=== PATIENT | female | born 1930 | race Caucasian/White ===

== ENCOUNTER 2017-03-05 18:12 | Inpatient (IN) | payer OTHER ==
[2017-03-05 18:19] VITALS: BMI 23.2
[2017-03-05] MEDS ORDERED: SODIUM CHLORIDE 1,000 ML IV SCH (18:45)
--- NOTE | 2017-03-05 18:46 | PDOC ---
History of Present Illness - History of Present Illness Initial Comments: 03/05/17 20:45 Patient is an 87 year old female with significant medical hx of multiple myeloma (chemotherapy biweekly), HTN, and arrhythmia who is presenting to the ED with rapid heart rate since today. Patient reports having onset of rapid heart rate today while at rest. It was not accompanied by any shortness of breath, chest pain, diaphoresis, nausea, vomiting, or lightheadedness. The patient was started on marinol today and she called her PCP who suspected it was an adverse reaction of the medication. Patient's last chemotherapy was last Thursday. Allergies: Penicillin, lisinopril, oxycodone HCl PCP: Domitila Martin MD <Denise Sears - Last Filed: 03/05/17 21:11> <Jose Cruz Martinez - Last Filed: 03/05/17 22:26> - General Chief Complaint: Irregular Heart Beat Stated Complaint: PCP SENT/BLOOD PRESSURE PROBLEM Time Seen by Provider: 03/05/17 18:42 Past History <Denise Sears - Last Filed: 03/05/17 21:11> - Past Medical History Asthma: No Cancer: Yes (BONE) Cardiac Disorders: Yes (arrythmia) CHF: No Diabetes: No HTN: Yes Hypercholesterolemia: No - Psycho/Social/Smoking Cessation Hx Anxiety: No Suicidal Ideation: No Smoking Status: No Smoking History: Never smoked Have you smoked in the past 12 months: No Number of Cigarettes Smoked Daily: 0 Hx Alcohol Use: No Drug/Substance Use Hx: No Substance Use Type: None <Jose Cruz Martinez - Last Filed: 03/05/17 22:26> - Past Medical History Allergies/Adverse Reactions: Allergies Allergy/AdvReac Type Severity Reaction Status Date / Time lisinopril Allergy Verified 03/05/17 18:15 oxycodone HCl Allergy Verified 03/05/17 18:15 [From OxyContin] Penicillins Allergy Verified 03/05/17 18:15 Home Medications: Ambulatory Orders Losartan Potassium 50 mg PO DAILY 10/26/15 Tramadol HCl 50 mg PO TID 03/05/17 Review of Systems - Review of Systems Comments:: 03/05/17 20:48 GENERAL/CONSTITUTIONAL: No fever or chills. No weakness. HEAD, EYES, EARS, NOSE AND THROAT: No change in vision. No ear pain or discharge. No sore throat. CARDIOVASCULAR: Rapid heart rate. No chest pain or shortness of breath. RESPIRATORY: No cough, wheezing, or hemoptysis. GASTROINTESTINAL: No nausea, vomiting, diarrhea or constipation. GENITOURINARY: No dysuria, frequency, or change in urination. MUSCULOSKELETAL: No joint or muscle swelling or pain. No neck or back pain. ENDOCRINE: No increased thirst. No abnormal weight change. SKIN: No rash NEUROLOGIC: No headache, vertigo, loss of consciousness, or change in strength/ sensation. <Denise Sears - Last Filed: 03/05/17 21:11> *Physical Exam - Vital Signs Last Vital Signs Temp Pulse Resp BP Pulse Ox 98.0 F 84 18 109/72 96 03/05/17 18:13 03/05/17 19:58 03/05/17 19:58 03/05/17 19:58 03/05/17 19:58 - Physical Exam Comments: 03/05/17 20:49 GENERAL: Awake, alert, and fully oriented, in no acute distress HEAD: No signs of trauma EYES: PERRLA, EOMI, sclera anicteric, conjunctiva clear ENT: Auricles normal inspection, hearing grossly normal, nares patent, oropharynx clear without exudates. Moist mucosa NECK: Normal ROM, supple, no lymphadenopathy, JVD, or masses LUNGS: Breath sounds equal, clear to auscultation bilaterally. No wheezes, and no crackles HEART: Irregularly irregular, normal S1 and S2, no murmurs, rubs or gallops ABDOMEN: Soft, nontender, normoactive bowel sounds. No guarding, no rebound. No masses EXTREMITIES: Normal range of motion, no edema. No clubbing or cyanosis. No cords, erythema, or tenderness NEUROLOGICAL: Cranial nerves II through XII grossly intact. Normal speech, normal gait SKIN: Warm, Dry, normal turgor, no rashes or lesions noted. HEMATOLOGIC/LYMPHATIC: No anemia, easy bleeding, or history of blood clots. ALLERGIC/IMMUNOLOGIC: No hives or skin allergy. <Denise Sears - Last Filed: 03/05/17 21:11> - Vital Signs Last Vital Signs Temp Pulse Resp BP Pulse Ox 98.0 F 137 H 18 154/81 97 03/05/17 18:13 03/05/17 18:13 03/05/17 18:13 03/05/17 18:13 03/05/17 18:13 <Jose Cruz Martinez - Last Filed: 03/05/17 22:26> Heart Score/ECG Review #1 03/05/17 21:11 Atrial fibrillation with rapid ventricular response Low voltage QRS Abnormal ECG <Denise Sears - Last Filed: 03/05/17 21:11> ED Treatment Course - LABORATORY CBC & Chemistry Diagram: 03/05/17 18:46 03/05/17 18:46 - ADDITIONAL ORDERS Additional order review: Laboratory Results 03/05/17 03/05/17 18:46 18:46 INR 1.17 H Sodium 139 Potassium 5.1 D Chloride 106 Carbon Dioxide 26 Anion Gap 7 L BUN 21 H D Creatinine 0.9 D Creat Clearance w eGFR 59.51 Random Glucose 135 H D Calcium 8.8 Magnesium 2.3 D Total Bilirubin 0.6 AST 144 H D ALT 180 H D Alkaline Phosphatase 175 H D Creatine Kinase 92 Troponin I 0.02 Total Protein 7.9 Albumin 3.4 03/05/17 18:46 RBC 4.20 MCV 98.8 H MCHC 32.1 RDW 15.9 H D MPV 10.7 D Neutrophils % 50.8 D Lymphocytes % 35.1 D Monocytes % 12.1 H Eosinophils % 1.6 Basophils % 0.4 - Medications Given in the ED: ED Medications Discontinued Medications Generic Name Dose Route Start Last Admin Trade Name Freq PRN Reason Stop Dose Admin Diltiazem HCl 10 mg 03/05/17 19:23 03/05/17 19:28 Cardizem Injection - IVPUSH 03/05/17 19:24 10 mg ONCE ONE Administration <Denise Sears - Last Filed: 03/05/17 21:11> - LABORATORY CBC & Chemistry Diagram: 03/05/17 18:46 03/05/17 18:46 - RADIOLOGY Radiology Studies Ordered: Category Date Time Status CHEST X-RAY PORTABLE* [RAD] Stat Radiology 03/05/17 18:42 Ordered <Jose Cruz Martinez - Last Filed: 03/05/17 22:26> *DC/Admit/Observation/Transfer - Attestations Scribe Attestion: 03/05/17 20:49 Documentation prepared by Denise Sears, acting as medical records analyst for Jose Cruz Martinez MD. <Denise Sears - Last Filed: 03/05/17 21:11> - Discharge Dispostion Admit: Yes - Attestations Physician Attestion: 03/05/17 18:45 I, Dr. Jose Cruz Martinez, attest that this document has been prepared under my direction and personally reviewed by me in its entirety. I further attest, that it accurately reflects all work, treatment, procedures and medical decision -making performed by me. <Jose Cruz Martinez - Last Filed: 03/05/17 22:26> Diagnosis at time of Disposition: New onset atrial fibrillation, Atrial fibrillation with rapid ventricular response - Discharge Dispostion Condition at time of disposition: Improved - Referrals Referrals: Domitila Fish MD [Primary Care Provider] -
[2017-03-05] MEDS ORDERED: dilTIAZem HCL 125 MG/25 ML - 25 ML VIAL ONE (19:09)
[2017-03-05] MEDS ORDERED: dilTIAZem HCL 50 MG/10 ML - 10 ML VIAL ONE (19:11)
[2017-03-05 19:23] LABS: BASOPHIL 0.4 % (0-2.0); EOSINOPHIL 1.6 % (0-4.5); MCH 31.8 pg (25.7-33.7); MCHC 32.1 g/dl (32.0-36.0); MEAN CELL VOLUME 98.8 fl (80-96); MEAN PLT VOLUME 10.7 fl (7.5-11.1); NEUTROPHILS 50.8 % (42.8-82.8); PLATELET COUNT 110 K/MM3 (134-434); RDW 15.9 % (11.6-15.6); WHITE BLOOD COUNT 4.6 K/mm3 (4.0-10.0)
[2017-03-05] MEDS ORDERED: dilTIAZem HCL 50 MG/10 ML - 10 ML VIAL IVPUSH ONE (19:23)
[2017-03-05] MEDS ORDERED: DILTIAZEM INJECTION 125 MG in DEXTROSE 5%-WATER - 100 ML IVPB SCH (19:30)
[2017-03-05 19:46] LABS: INR 1.17 (0.82-1.09); PROTHROMBIN TIME (PATIENT) 12.9 SEC (9.98-11.88)
[2017-03-05 19:56] LABS: ALBUMIN 3.4 g/dl (3.4-5.0); ANION GAP 7 (8-16); BILIRUBIN,TOTAL 0.6 mg/dL (0.2-1.0); CALCIUM 8.8 mg/dL (8.5-10.1); CO2 26 mmol/L (21-32); CREATININE 0.9 mg/dL (0.55-1.02); GLUCOSE,RANDOM 135 mg/dL (74-106); MAGNESIUM 2.3 mg/dL (1.8-2.4); SGOT/AST 144 U/L (15-37); SGPT/ALT 180 U/L (12-78); TOT PROT 7.9 g/dl (6.4-8.2)
[2017-03-05 19:59] LABS: ALK PHOS 175 U/L (45-117); TROPONIN I 0.02 ng/ml (0.00-0.05)
[2017-03-05] MEDS ORDERED: traMADol HCL 50 MG TABLET PO ONE (21:32)
[2017-03-05] MEDS ORDERED: traMADol HCL 50 MG TABLET ONE (21:49)
--- NOTE | 2017-03-05 23:13 | HP ---
HISTORY OF PRESENT ILLNESS: Patient is an 87 year old female with a PMHx of Multiple Myeloma (On chemotherapy [id number]), HTN, and A.fib who presents with complaints of palpitations that started suddenly today at home after taking prescribed marinol for anorexia. Patient's PCP then advised her to come to the ED for evaluation as she believes it is related to the marinol. Patient and patient's daughter report she was recently started on Pradaxa in the [place] but was unable to continue the medication when she returned to the [place] because of how expensive it was. Patient never followed up afterwards. Otherwise, patient denies fever, chills, nausea, vomiting, abdominal pain, shortness of breath, chest pain, dysuria, frequency, hematuria. PHYSICAL EXAMINATION Vital Signs - 24 hr 03/05/17 22:31 Temperature 98.5 F Pulse Rate [ 84 Left Radial] Respiratory 18 Rate Blood Pressure 108/72 [Right Arm] O2 Sat by Pulse 97 Oximetry (%) GENERAL: Awake, alert, and fully oriented, in no acute distress. LUNGS: Breath sounds equal, clear to auscultation bilaterally. No wheezes, and no crackles. No accessory muscle use. HEART: Regular rate and rhythm, normal S1 and S2 without murmur, rub or gallop. ABDOMEN: Soft, nontender, not distended, normoactive bowel sounds, no guarding, no rebound, no masses. LOWER EXTREMITIES: 2+ pulses, warm, well-perfused. No calf tenderness. No peripheral edema. Abnormal Lab Results 03/05/17 03/05/17 03/05/17 18:46 18:46 18:46 MCV 98.8 H RDW 15.9 H D Plt Count 110 L D Monocytes % 12.1 H INR 1.17 H Anion Gap 7 L BUN 21 H D Random Glucose 135 H D AST 144 H D ALT 180 H D Alkaline Phosphatase 175 H D EKG: Atrial fibrillation with rapid ventricular response. Low voltage QRS ASSESSMENT/PLAN: Patient is an 87 year old female with a PMHx of HTN, Multiple Myeloma on chemotheray, and Afib who complains of palpitations after taking Marinol for anorexia due to chemotherapy and was found to be in A.Fib with RVR. Patient admitted for further monitoring and management. A.FIB w/ RVR -Tachycardia >130's -Hasbled: 2 -[id number]: 4 -Likely due to noncompliance with medication -Start anticoagulation with Lovenox 60mg BID and Warfarin 5mg daily -Start Cardizem 60mg TID for rate control -Cardiac consult placed -INR/PTT ordered -ECHO ordered -Lipid profile, A1C, TSH ordered -Continue cardiac monitoring Chest pain -R/O ACS -First troponin negative with second pending -EKG negative for ST elevation Case discussed with medical team and attending. Full H&P to follow. Visit type - Emergency Visit Emergency Visit: Yes ED Registration Date: 03/05/17 Care time: The patient presented to the Emergency Department on the above date and was hospitalized for further evaluation of their emergent condition. - New Patient This patient is new to me today: Yes Date on this admission: 03/06/17 - Critical Care Critical Care patient: No
--- NOTE | 2017-03-05 23:45 | HP ---
CHIEF COMPLAINT: Palpitation ,Mid sternal chest pain. PCP: Domitila Martin MD HISTORY OF PRESENT ILLNESS: Patient is an 87 year old female with a significant past medical hx of Multiple Myeloma (chemotherapy biweekly), HTN, and A.Fib who presented to the ED complaining of palpitations and chest tightness that started today around 16:00 today associated with non-radiating, mid-sternal chest pain described as tight in nature with a severity of 6/10. Patient and patients daughter report that since starting chemotherapy she has experienced decreased appetite and pain for which she was prescribed marinol by her primary care physician. When she took her first dose of marinol today, patient immediately experienced palpitations and called her primacy care physician who advised her to go to the ED as she believes it was a side effect of the marinol. Otherwise, patient denies any shortness of breath, diaphoresis, nausea, vomiting, or lightheadedness Patient denies any urinary symptoms. Allergies: Penicillin, lisinopril, oxycodone HCl ER course was notable for: (1)EKG :Atrial fibrillation with rapid ventricular response. (2)CXR: No acute pathology (3)Diltiazem 10 mg IVPUSH once Recent Travel:NO PAST MEDICAL HISTORY: PAST SURGICAL HISTORY:none Social History: Smoking:none Alcohol:None Drugs: None Family History: Allergies: lisinopril Allergy (Verified 03/05/17 18:15) oxycodone HCl [From OxyContin] Allergy (Verified 03/05/17 18:15) Penicillins Allergy (Verified 03/05/17 18:15) HOME MEDICATIONS: Home Medications Medication Instructions Recorded Losartan Potassium 50 mg PO DAILY 10/26/15 Tramadol HCl 50 mg PO TID 03/05/17 REVIEW OF SYSTEMS CONSTITUTIONAL: Absent: fever, chills, diaphoresis, generalized weakness, malaise, loss of appetite, weight change HEENT: Absent: rhinorrhea, nasal congestion, throat pain, throat swelling, difficulty swallowing, mouth swelling, ear pain, eye pain, visual changes CARDIOVASCULAR: Absent:+ chest pain, syncope, +palpitations,+ irregular heart rate, lightheadedness,+ peripheral edema RESPIRATORY: Absent: cough, shortness of breath, dyspnea with exertion, orthopnea, wheezing, stridor, hemoptysis GASTROINTESTINAL: Absent: abdominal pain, abdominal distension, nausea, vomiting, diarrhea, constipation, melena, hematochezia GENITOURINARY: Absent: dysuria, frequency, urgency, hesitancy, hematuria, flank pain, genital pain MUSCULOSKELETAL: Absent: myalgia, arthralgia, joint swelling, back pain, neck pain SKIN: Absent: rash, itching, pallor HEMATOLOGIC/IMMUNOLOGIC: Absent: easy bleeding, easy bruising, lymphadenopathy, frequent infections ENDOCRINE: Absent: unexplained weight gain, unexplained weight loss, heat intolerance, cold intolerance NEUROLOGIC: Absent: headache, focal weakness or paresthesias, dizziness, unsteady gait, seizure, mental status changes, bladder or bowel incontinence PSYCHIATRIC: Absent: anxiety, depression, suicidal or homicidal ideation, hallucinations. CBC, BMP PHYSICAL EXAMINATION Vital Signs - 24 hr 03/05/17 22:31 Temperature 98.5 F Pulse Rate [ 84 Left Radial] Respiratory 18 Rate Blood Pressure 108/72 [Right Arm] O2 Sat by Pulse 97 Oximetry (%) GENERAL: Awake, alert, and fully oriented, in no acute distress. HEAD: Normal with no signs of trauma. EYES: Pupils equal, round and reactive to light, extraocular movements intact, sclera anicteric, conjunctiva clear. No lid lag. EARS, NOSE, THROAT: oropharynx clear without exudates. Moist mucous membranes. NECK: Normal range of motion, supple without lymphadenopathy, JVD, or masses. LUNGS: Breath sounds equal, clear to auscultation bilaterally. No wheezes, and no crackles. No accessory muscle use. HEART: Irregularly irregular rhythm, normal S1 and S2 without murmur, rub or gallop. ABDOMEN: Soft, nontender, not distended, normoactive bowel sounds, no guarding, no rebound, no masses. No hepatomegaly or splenomegaly. MUSCULOSKELETAL: No CVA tenderness. UPPER EXTREMITIES: 2+ pulses, warm, well-perfused. No cyanosis. No clubbing. No peripheral edema. LOWER EXTREMITIES: 2+ pulses, warm, well-perfused. No calf tenderness. No peripheral edema. NEUROLOGICAL: Normal speech. Normal gait. PSYCHIATRIC: Cooperative. Good eye contact. Appropriate mood and affect. SKIN: Warm, dry, normal turgor, no rashes or lesions noted, normal capillary refill. CBC, BMP 03/05/17 18:46 03/05/17 18:46 CBCD WBC 4.6 K/mm3 (4.0-10.0) 03/05/17 18:46 RBC 4.20 M/mm3 (3.60-5.2) 03/05/17 18:46 Hgb 13.3 GM/dL (10.7-15.3) 03/05/17 18:46 Hct 41.5 % (32.4-45.2) 03/05/17 18:46 MCV 98.8 fl (80-96) H 03/05/17 18:46 MCHC 32.1 g/dl (32.0-36.0) 03/05/17 18:46 RDW 15.9 % (11.6-15.6) H D 03/05/17 18:46 Plt Count 110 K/MM3 (134-434) L D 03/05/17 18:46 MPV 10.7 fl (7.5-11.1) D 03/05/17 18:46 CMP Sodium 139 mmol/L (136-145) 03/05/17 18:46 Potassium 5.1 mmol/L (3.5-5.1) D 03/05/17 18:46 Chloride 106 mmol/L (98-107) 03/05/17 18:46 Carbon Dioxide 26 mmol/L (21-32) 03/05/17 18:46 Anion Gap 7 (8-16) L 03/05/17 18:46 BUN 21 mg/dL (7-18) H D 03/05/17 18:46 Creatinine 0.9 mg/dL (0.55-1.02) D 03/05/17 18:46 Creat Clearance w eGFR 59.51 (>60) 03/05/17 18:46 Calcium 8.8 mg/dL (8.5-10.1) 03/05/17 18:46 Total Bilirubin 0.6 mg/dL (0.2-1.0) 03/05/17 18:46 AST 144 U/L (15-37) H D 03/05/17 18:46 ALT 180 U/L (12-78) H D 03/05/17 18:46 Alkaline Phosphatase 175 U/L (45-117) H D 03/05/17 18:46 Total Protein 7.9 g/dl (6.4-8.2) 03/05/17 18:46 Albumin 3.4 g/dl (3.4-5.0) 03/05/17 18:46 EKG:Atrial fibrillation with rapid ventricular response. ASSESSMENT/PLAN: Patient is an 87 year old female with significant medical hx of multiple myeloma (chemotherapy biweekly), HTN, and arrhythmia who is presenting to the ED with episode of rapid heart rate ,patient was admitted for cardiac tele for new onset of AFIB ( HR 126) with rapid ventricular response, and for acute chest pain to R/O ACS. #Chest pain, Acute R/O ACS * Trop * CXR no acute pathology * telemetry monitor * Cardiac consultation * Repeat EKG * ECHO # AFIb, * CHA2 DS2 Vasc score of 4 * HAS BLED score 2 * Repeat EKG in the morning * trend trop * TSH to R/O hyperthyroidism * CXR shows no acute pathology * Echocardiogram * cardiac observation * PTT/INR * Lipid profile * Lovenox 60 mg SQ BID * start Diltiazem 60 mg PO TID. * cardiac consult # HTN , controlled * Continue Home meds Losartan 50 MG PO BID * BP monitor * low sodium diet * # MM * on chemo therapy last session was last thu * F/U as out patient after DC # Transaminitis : * AST 144 ,ALT 180 * continue trend * US liver * no RUQ pain # F/E/N * NS 0.9 @ 75 CC /H * Electrolytes WNL * N: low sodium diet # Prophylaxis : - DVT proph - # Dispo : -Admit to cardiac tele -Full code
[2017-03-06] MEDS ORDERED: WARFARIN NA 5 MG TABLET (UD) PO ONE (00:01)
[2017-03-06] MEDS: ENOXAPARIN NA (PORCINE) 60 MG/0.6 ML DISP.SYRIN SQ SCH ×2 (00:01→10:46)
[2017-03-06] MEDS ORDERED: SODIUM CHLORIDE 1,000 ML IV SCH ×2 (04:19→04:30)
[2017-03-06] MEDS: dilTIAZem HCL 60 MG TABLET (FP) PO SCH ×3 (05:59→21:25)
[2017-03-06] MEDS: INSULIN SLIDING SCALE (NOVOLOG) 1 VIAL SQ SCH ×2 (06:05→17:31)
--- NOTE | 2017-03-06 06:30 | PN ---
Teaching Attending Note Name of Resident: Akash Contreras ATTENDING PHYSICIAN STATEMENT I saw and evaluated the patient. I reviewed the resident's note and discussed the case with the resident. I agree with the resident's findings and plan as documented. SUBJECTIVE: 87 y/o female with h/o HTN, MM receiving chemotherapy and recently diagnosed with Afib 2 months ago, non compliant with anticoagulation therapy due to the cost, presented to ED with c/o chest pressure. OBJECTIVE: PAtient is A&O x3 in no acute distress, CVS: Irreg rate and rhythm, no JVD Lungs: CTA Abdomen: soft, NT, ND, BS+ Ext: 2+ pulses, Nl ROM CBCD WBC 4.6 K/mm3 (4.0-10.0) 03/05/17 18:46 RBC 4.20 M/mm3 (3.60-5.2) 03/05/17 18:46 Hgb 13.3 GM/dL (10.7-15.3) 03/05/17 18:46 Hct 41.5 % (32.4-45.2) 03/05/17 18:46 MCV 98.8 fl (80-96) H 03/05/17 18:46 MCHC 32.1 g/dl (32.0-36.0) 03/05/17 18:46 RDW 15.9 % (11.6-15.6) H D 03/05/17 18:46 Plt Count 110 K/MM3 (134-434) L D 03/05/17 18:46 MPV 10.7 fl (7.5-11.1) D 03/05/17 18:46 CMP Sodium 139 mmol/L (136-145) 03/05/17 18:46 Potassium 5.1 mmol/L (3.5-5.1) D 03/05/17 18:46 Chloride 106 mmol/L (98-107) 03/05/17 18:46 Carbon Dioxide 26 mmol/L (21-32) 03/05/17 18:46 Anion Gap 7 (8-16) L 03/05/17 18:46 BUN 21 mg/dL (7-18) H D 03/05/17 18:46 Creatinine 0.9 mg/dL (0.55-1.02) D 03/05/17 18:46 Creat Clearance w eGFR 59.51 (>60) 03/05/17 18:46 Random Glucose 135 mg/dL (74-106) H D 03/05/17 18:46 Calcium 8.8 mg/dL (8.5-10.1) 03/05/17 18:46 Total Bilirubin 0.6 mg/dL (0.2-1.0) 03/05/17 18:46 AST 144 U/L (15-37) H D 03/05/17 18:46 ALT 180 U/L (12-78) H D 03/05/17 18:46 Alkaline Phosphatase 175 U/L (45-117) H D 03/05/17 18:46 Total Protein 7.9 g/dl (6.4-8.2) 03/05/17 18:46 Albumin 3.4 g/dl (3.4-5.0) 03/05/17 18:46 CARDIAC ENZYMES Creatine Kinase 92 IU/L (26-192) 03/05/17 18:46 Troponin I 0.03 ng/ml (0.00-0.05) 03/06/17 02:45 ASSESSMENT AND PLAN: Afib with uncontrolled rate on cardizeme drip, start po cardizeme. Admit for telemetry observation Lovenox 1mg/kg q12h Coumadin 5mg QHS follow coag daily ECHO Elevated LFTS possibly secondary to Chemo medications Bortezomib get US
[2017-03-06 07:35] LABS: INR 1.22 (0.82-1.09); PROTHROMBIN TIME (PATIENT) 13.5 SEC (9.98-11.88)
[2017-03-06 07:43] LABS: ALBUMIN 3.3 g/dl (3.4-5.0); ALK PHOS 143 U/L (45-117); ANION GAP 6 (8-16); BILIRUBIN,TOTAL 0.8 mg/dL (0.2-1.0); CALCIUM 8.2 mg/dL (8.5-10.1); CHOLESTEROL 122 mg/dL (50-200); CO2 27 mmol/L (21-32); CREATININE 0.8 mg/dL (0.55-1.02); GLUCOSE,RANDOM 101 mg/dL (74-106); LDL CHOLESTEROL (ONLY SJRH) 68 mg/dL (5-100); SGOT/AST 118 U/L (15-37); SGPT/ALT 170 U/L (12-78); TOT PROT 7.3 g/dl (6.4-8.2)
--- NOTE | 2017-03-06 09:14 | EKG ---
Test Reason : Blood Pressure : / mmHG Vent. Rate : 080 BPM Atrial Rate : 416 BPM P-R Int : 000 ms QRS Dur : 088 ms QT Int : 384 ms P-R-T Axes : 000 -10 019 degrees QTc Int : 442 ms ATRIAL FIBRILLATION LOW VOLTAGE QRS ABNORMAL ECG WHEN COMPARED WITH ECG OF 05-MAR-2017 18:32, VENT. RATE HAS DECREASED BY 46 BPM Confirmed by LUISANA ALMARAZ MD ([id number]) on 03/06/2017 9:14:19 AM Referred By: Confirmed By:LUISANA ALMARAZ MD
--- NOTE | 2017-03-06 09:21 | EKG ---
Test Reason : Blood Pressure : / mmHG Vent. Rate : 126 BPM Atrial Rate : 098 BPM P-R Int : 000 ms QRS Dur : 086 ms QT Int : 306 ms P-R-T Axes : 000 -15 041 degrees QTc Int : 443 ms ATRIAL FIBRILLATION WITH RAPID VENTRICULAR RESPONSE LOW VOLTAGE QRS ABNORMAL ECG WHEN COMPARED WITH ECG OF 26-OCT-2015 10:54, ATRIAL FIBRILLATION HAS REPLACED SINUS RHYTHM Confirmed by LUISANA ALMARAZ MD ([id number]) on 03/06/2017 9:21:25 AM Referred By: Confirmed By:LUISANA ALMARAZ MD
[2017-03-06] MEDS ORDERED: LOSARTAN POTASSIUM 50 MG TABLET (FP) PO SCH ×2 (10:00→10:04)
[2017-03-06 11:09] LABS: URINE APPEARANCE CLEAR; URINE BILIRUBIN NEGATIVE (NEGATIVE); URINE BLOOD NEGATIVE (NEGATIVE); URINE COLOR LTYELLOW; URINE GLUCOSE (UA) NEGATIVE (NEGATIVE); URINE KETONE NEGATIVE (NEGATIVE); URINE LEUK ESTERASE NEGATIVE (NEGATIVE); URINE NITRITE NEGATIVE (NEGATIVE); URINE PROTEIN NEGATIVE (NEGATIVE); URINE UROBILINOGEN NEGATIVE mg/dL (0.2-1.0)
--- NOTE | 2017-03-06 11:26 | CON.CARD ---
Cardiology Consult (text) - Consultation Consultation Note: cc: palps hpi: 87 f hx multiple myeloma on chemo, htn, afib here with palps. Pt had been feeling well until yesterday when felt her heart beating fast. No cp, sob , dizzy, loc, pnd, orthopnea, le edema. Came to ER and found afib with rvr. Rate controlled and today feeling better. Poor compliance with meds as outpt. pmh: per hpi psh: nc social: no tob fam: no premature cad, scd ros: per hpi; no nvd, fever, cough, nasal congestion, hematuria, gib, muscle pain, [place], vision changes meds: Ambulatory Orders Losartan Potassium 50 mg PO DAILY 10/26/15 Tramadol HCl 50 mg PO TID 03/05/17 pe: Vital Signs Period Temp Pulse Resp BP Sys/Duarte Pulse Ox Last 24 Hr 97.5 F-98.5 F 68-137 16-20 108-154/62-85 96-97 nad no jvd irreg s1s2 no mrg cta bl nl eff awake alert appropriate no jaundice diaphoresis +dp pt, no carotid bruits abd nt nd pos bs no le e/c/c Laboratory Last Values WBC 4.6 K/mm3 (4.0-10.0) 03/05/17 18:46 RBC 4.20 M/mm3 (3.60-5.2) 03/05/17 18:46 Hgb 13.3 GM/dL (10.7-15.3) 03/05/17 18:46 Hct 41.5 % (32.4-45.2) 03/05/17 18:46 MCV 98.8 fl (80-96) H 03/05/17 18:46 MCH 31.8 pg (25.7-33.7) 03/05/17 18:46 MCHC 32.1 g/dl (32.0-36.0) 03/05/17 18:46 RDW 15.9 % (11.6-15.6) H D 03/05/17 18:46 Plt Count 110 K/MM3 (134-434) L D 03/05/17 18:46 MPV 10.7 fl (7.5-11.1) D 03/05/17 18:46 Neutrophils % 50.8 % (42.8-82.8) D 03/05/17 18:46 Lymphocytes % 35.1 % (8-40) D 03/05/17 18:46 Monocytes % 12.1 % (3.8-10.2) H 03/05/17 18:46 Eosinophils % 1.6 % (0-4.5) 03/05/17 18:46 Basophils % 0.4 % (0-2.0) 03/05/17 18:46 INR 1.22 (0.82-1.09) H 03/06/17 05:35 Sodium 139 mmol/L (136-145) 03/06/17 05:35 Potassium 3.7 mmol/L (3.5-5.1) D 03/06/17 05:35 Chloride 106 mmol/L (98-107) 03/06/17 05:35 Carbon Dioxide 27 mmol/L (21-32) 03/06/17 05:35 Anion Gap 6 (8-16) L 03/06/17 05:35 BUN 15 mg/dL (7-18) D 03/06/17 05:35 Creatinine 0.8 mg/dL (0.55-1.02) 03/06/17 05:35 Creat Clearance w eGFR > 60 (>60) 03/06/17 05:35 POC Glucometer 112 UNITS (()) 03/06/17 06:03 Random Glucose 101 mg/dL (74-106) D 03/06/17 05:35 Hemoglobin A1c % 6.7 % (4.8-6.0) H 03/06/17 05:35 Calcium 8.2 mg/dL (8.5-10.1) L 03/06/17 05:35 Magnesium 2.3 mg/dL (1.8-2.4) D 03/05/17 18:46 Total Bilirubin 0.8 mg/dL (0.2-1.0) D 03/06/17 05:35 AST 118 U/L (15-37) H 03/06/17 05:35 ALT 170 U/L (12-78) H 03/06/17 05:35 Alkaline Phosphatase 143 U/L (45-117) H 03/06/17 05:35 Creatine Kinase 92 IU/L (26-192) 03/05/17 18:46 Troponin I 0.03 ng/ml (0.00-0.05) 03/06/17 10:00 Total Protein 7.3 g/dl (6.4-8.2) 03/06/17 05:35 Albumin 3.3 g/dl (3.4-5.0) L 03/06/17 05:35 Triglycerides 47 mg/dL (35-160) 03/06/17 05:35 Cholesterol 122 mg/dL (50-200) 03/06/17 05:35 Total LDL Cholesterol 68 mg/dL (5-100) 03/06/17 05:35 HDL Cholesterol 51 mg/dL (40-60) 03/06/17 05:35 Urine Color Ltyellow 03/06/17 10:35 Urine Appearance Clear 03/06/17 10:35 Urine pH 5.0 (5.0-8.0) D 03/06/17 10:35 Urine Protein Negative (NEGATIVE) 03/06/17 10:35 Urine Glucose (UA) Negative (NEGATIVE) 03/06/17 10:35 Urine Ketones Negative (NEGATIVE) 03/06/17 10:35 Urine Blood Negative (NEGATIVE) 03/06/17 10:35 Urine Nitrite Negative (NEGATIVE) 03/06/17 10:35 Urine Bilirubin Negative (NEGATIVE) 03/06/17 10:35 Urine Urobilinogen Negative mg/dL (0.2-1.0) 03/06/17 10:35 Ur Leukocyte Esterase Negative (NEGATIVE) 03/06/17 10:35 echo 12/2014: nl lv/rv, mild mr, mild ar, mild pr, mild-mod tr, rvsp 50-60 tele: afib, rate controlled currently cxr: clear lungs ecg 03/05/17: afib, rate controlled, no ischemic changes, nl qtc a/p: 87 f hx multiple myeloma on chemo, htn, afib here with palps. palps, afib: -no signs acs, ce's neg x2, no ischemic ecg changes -presented with afib with rvr, likely due to poor med compliance -currently rate improved with dilt, continue and monitor on tele -cont coumadin per INR -check updated echo htn: -controlled, cont current meds mild valvular dz (mr,ar,pr,tr): -appears stable, monitor with updated echo
--- NOTE | 2017-03-06 13:50 | PN ---
Physical Exam: SUBJECTIVE: Patient seen and examined at bedside. Pt complains of mild chest and throat pressure. No other complaints at this time. Pt denies headache, sob, abd pain, nausea, vomiting, diarrhea, dysuria, fever. OBJECTIVE: Vital Signs Period Temp Pulse Resp BP Sys/Duarte Pulse Ox Last 24 Hr 97.5 F-98.5 F 68-104 18-20 108-139/62-85 97-97 GENERAL: The patient is awake, alert, and fully oriented, in no acute distress. HEAD: Normal with no signs of trauma. EYES: PERRL, extraocular movements intact, sclera anicteric, conjunctiva clear. No ptosis. ENT: oropharynx clear without exudates, moist mucous membranes. NECK: Trachea midline, full range of motion, supple. LUNGS: Breath sounds equal, clear to auscultation bilaterally, no wheezes, no crackles, no accessory muscle use. HEART: Regular rate and rhythm, normal S1, S2 without murmur, rub or gallop. ABDOMEN: Soft, nontender, nondistended, normoactive bowel sounds, no guarding, no rebound, no hepatosplenomegaly, no masses. EXTREMITIES: 2+ pulses, warm, well-perfused, no edema. NEUROLOGICAL: Cranial nerves II through XII grossly intact. Normal speech, gait not observed. PSYCH: Normal mood, normal affect. SKIN: Warm, dry, normal turgor, no rashes or lesions noted Laboratory Results - last 24 hr 03/06/17 03/06/17 03/06/17 02:45 05:35 05:35 INR 1.22 H Sodium 139 Potassium 3.7 D Chloride 106 Carbon Dioxide 27 Anion Gap 6 L BUN 15 D Creatinine 0.8 Creat Clearance w eGFR > 60 POC Glucometer Random Glucose 101 D Hemoglobin A1c % Calcium 8.2 L Total Bilirubin 0.8 D AST 118 H ALT 170 H Alkaline Phosphatase 143 H Troponin I 0.03 Total Protein 7.3 Albumin 3.3 L Triglycerides 47 Cholesterol 122 Total LDL Cholesterol 68 HDL Cholesterol 51 Urine Color Urine Appearance Urine pH Urine Protein Urine Glucose (UA) Urine Ketones Urine Blood Urine Nitrite Urine Bilirubin Urine Urobilinogen Ur Leukocyte Esterase 03/06/17 03/06/17 03/06/17 05:35 06:03 10:00 INR Sodium Potassium Chloride Carbon Dioxide Anion Gap BUN Creatinine Creat Clearance w eGFR POC Glucometer 112 Random Glucose Hemoglobin A1c % 6.7 H Calcium Total Bilirubin AST ALT Alkaline Phosphatase Troponin I 0.03 Total Protein Albumin Triglycerides Cholesterol Total LDL Cholesterol HDL Cholesterol Urine Color Urine Appearance Urine pH Urine Protein Urine Glucose (UA) Urine Ketones Urine Blood Urine Nitrite Urine Bilirubin Urine Urobilinogen Ur Leukocyte Esterase 03/06/17 03/06/17 10:35 11:40 INR Sodium Potassium Chloride Carbon Dioxide Anion Gap BUN Creatinine Creat Clearance w eGFR POC Glucometer 104 Random Glucose Hemoglobin A1c % Calcium Total Bilirubin AST ALT Alkaline Phosphatase Troponin I Total Protein Albumin Triglycerides Cholesterol Total LDL Cholesterol HDL Cholesterol Urine Color Ltyellow Urine Appearance Clear Urine pH 5.0 D Urine Protein Negative Urine Glucose (UA) Negative Urine Ketones Negative Urine Blood Negative Urine Nitrite Negative Urine Bilirubin Negative Urine Urobilinogen Negative Ur Leukocyte Esterase Negative Active Medications Generic Name Dose Route Start Last Admin Trade Name Freq PRN Reason Stop Dose Admin Diltiazem HCl 60 mg 03/06/17 06:00 03/06/17 05:59 Cardizem - PO 03/06/17 23:00 60 mg TID ANANT Administration Diltiazem HCl 180 mg 03/07/17 10:00 Cardizem Cd - PO DAILY [facility] Enoxaparin Sodium 60 mg 03/05/17 23:30 03/06/17 10:46 Lovenox - SQ 60 mg BID [facility] Administration Insulin Aspart 1 vial 03/06/17 07:00 03/06/17 06:05 Novolog Vial Sliding Scale - SQ Not Given BIDAC [facility] Protocol Losartan Potassium 25 mg 03/06/17 10:04 03/06/17 10:46 Cozaar - PO 25 mg DAILY [facility] Administration Tramadol HCl 50 mg 03/05/17 23:27 Ultram - PO TID PRN PAIN LEVEL 6-10 Warfarin Sodium 5 mg 03/06/17 18:00 Coumadin - PO DAILY@1800 [facility] ASSESSMENT/PLAN: This is an 87 year old female with significant medical hx of multiple myeloma ( chemotherapy biweekly), HTN, and artial fibrillation who is presenting to the ED with episode of rapid heart rate, patient was admitted for cardiac tele for new onset of AFIB ( HR 126) with rapid ventricular response, and for acute chest pain to R/O ACS. #r/o ACS -Pain is midsternal, pressure-like, reproducible, unrelated to activity, and pt states it resolves completely with the application of "vapor rub" every time -Tn neg x3 -CXR no acute pathology -Echo: severe mitral and tricuspid regurg -repeat EKG neg for ST elevations # AFIb, -CHA2 DS2 Vasc score of 4 -HAS BLED score 2 -Repeat EKG in the morning -trend trop -TSH to R/O hyperthyroidism -CXR shows no acute pathology -Echocardiogram -cardiac observation -PTT/INR -Lipid profile -Lovenox 60 mg SQ BID -start Diltiazem 60 mg PO TID. -cardiac consult # HTN , controlled -Continue Home meds Losartan 50 MG PO BID -BP monitor -low sodium diet # Transaminitis : -?? 2/2 to hypoperfusion during bout of RVR -AST 144 ,ALT 180 -continue trend -US liver -no RUQ pain # MM -on chemo therapy last session was last thu - F/U as out patient after DC #UA neg # FEN -NS 0.9 @ 75 CC /H -Electrolytes WNL -low sodium diet # Prophylaxis - DVT proph # Dispo : -Admit to cardiac tele -Full code Visit type - Emergency Visit Emergency Visit: No - New Patient This patient is new to me today: No - Critical Care Critical Care patient: No
--- NOTE | 2017-03-06 16:04 | PN ---
Teaching Attending Note Name of Resident: Balbir Estrada ATTENDING PHYSICIAN STATEMENT I saw and evaluated the patient. I reviewed the resident's note and discussed the case with the resident. I agree with the resident's findings and plan as documented. SUBJECTIVE: no fever or chills, no CP or SOB, no PAlpitations feels much better OBJECTIVE: NAD , Awake , alert. CV: irreg irreg , JVD . no MRG Lungs : bibasilar crackles Abd :S fot, NT, ND , NL BS Ext : no edema , or erythema A/P : 87 y/o lady with h/o HTN, A fib , and MM who presented with palpitations and CP , who was found to have A fib with RVR 1- A fib with RVR. on only baby aspirin at home. not on any AV sharon bobby at home. now HR has responded to CCB. She looks in a mild R and left sided CHF but but there is no respiratory compromise She has no signs of infection . - cont cardizem 60 TID , and if BP tolerates , will change to cardizem CD in am - decrease dose of losartan to 25 to give room for rate control - [id number] score of 4---> 4.8 % yearly risk of stroke. was on Pradaxa in past but insurance coverage has stopped, so now on ASA as otu pt - was started on coumadin and lovenox here. Will d/w her insurance if eliquis or xarelto are covered. if so will change to NOACS - although , she has signs of heart mild heart failure , will hold diuresis now , and stop IVF started last night - TSH pending 2- Transaminitis : likely due to liver congestion from R sided heart failure. also , possible transient hypotension when in RVR . Meds effect in DDX ( chemotherapy). unlikely cholecystitis or biliary stones. no RUAQ pain . LFTS have improved - RUQ US - trend 3- h/o HTN: decrease losartan as above 4- atypical CP : likely due to tachycardia . trop slightly increased within NL limit. repeat.tele monitoring 5-MM, out pt f/u
[2017-03-06] MEDS ORDERED: RIVAROXABAN 20 MG TABLET PO SCH (17:00)
[2017-03-06] MEDS ORDERED: WARFARIN NA 5 MG TABLET (UD) PO SCH (18:00)
[2017-03-06] MEDS: traMADol HCL 50 MG TABLET PO PRN (21:44)
[2017-03-07] MEDS: INSULIN SLIDING SCALE (NOVOLOG) 1 VIAL SQ SCH ×2 (06:05→17:56)
[2017-03-07 07:06] LABS: INR 1.22 (0.82-1.09); PROTHROMBIN TIME (PATIENT) 13.5 SEC (9.98-11.88)
[2017-03-07 07:26] LABS: ANION GAP 6 (8-16); BILIRUBIN,TOTAL 0.8 mg/dL (0.2-1.0); CALCIUM 8.5 mg/dL (8.5-10.1); CO2 27 mmol/L (21-32); CREATININE 0.9 mg/dL (0.55-1.02); GLUCOSE,RANDOM 93 mg/dL (74-106); SGOT/AST 102 U/L (15-37); SGPT/ALT 150 U/L (12-78); TOT PROT 6.8 g/dl (6.4-8.2)
[2017-03-07 07:35] LABS: ALK PHOS 139 U/L (45-117); THYROID STIMULATING HORMONE 2.79 uIU/ml (0.358-3.74)
--- NOTE | 2017-03-07 09:05 | PN ---
Progress Note (short form) - Note Progress Note: Subjective: no feve ror chills, has no CP or SOB. has no abd pain . no diarrhea or dysuria . denies palpitations . no events over night Objective: Vital Signs: Last Vital Signs Temp Pulse Resp BP Pulse Ox 97.2 F L 82 20 121/57 97 03/07/17 05:00 03/07/17 05:00 03/07/17 05:00 03/07/17 05:00 03/06/17 22:00 Laboratory Results - last 24 hr 03/06/17 03/06/17 03/06/17 05:35 10:00 10:35 INR Sodium Potassium Chloride Carbon Dioxide Anion Gap BUN Creatinine Creat Clearance w eGFR POC Glucometer Random Glucose Hemoglobin A1c % 6.7 H Calcium Total Bilirubin AST ALT Alkaline Phosphatase Troponin I 0.03 Total Protein Albumin TSH Urine Color Ltyellow Urine Appearance Clear Urine pH 5.0 D Ur Specific [place] 1.010 Urine Protein Negative Urine Glucose (UA) Negative Urine Ketones Negative Urine Blood Negative Urine Nitrite Negative Urine Bilirubin Negative Urine Urobilinogen Negative Ur Leukocyte Esterase Negative 03/06/17 03/06/17 03/07/17 11:40 15:47 05:35 INR Sodium 142 Potassium 4.2 Chloride 109 H Carbon Dioxide 27 Anion Gap 6 L BUN 16 Creatinine 0.9 Creat Clearance w eGFR 59.51 POC Glucometer 104 154 Random Glucose 93 Hemoglobin A1c % Calcium 8.5 Total Bilirubin 0.8 AST 102 H ALT 150 H Alkaline Phosphatase 139 H Troponin I Total Protein 6.8 Albumin 3.0 L TSH 2.79 Urine Color Urine Appearance Urine pH Ur Specific [place] Urine Protein Urine Glucose (UA) Urine Ketones Urine Blood Urine Nitrite Urine Bilirubin Urine Urobilinogen Ur Leukocyte Esterase 03/07/17 03/07/17 05:35 06:04 INR 1.22 H Sodium Potassium Chloride Carbon Dioxide Anion Gap BUN Creatinine Creat Clearance w eGFR POC Glucometer 110 Random Glucose Hemoglobin A1c % Calcium Total Bilirubin AST ALT Alkaline Phosphatase Troponin I Total Protein Albumin TSH Urine Color Urine Appearance Urine pH Ur Specific [place] Urine Protein Urine Glucose (UA) Urine Ketones Urine Blood Urine Nitrite Urine Bilirubin Urine Urobilinogen Ur Leukocyte Esterase Physical Exam: NAD , Awake , alert. CV: irreg irreg , JVD . no MRG Lungs : clear today Ext : no edema , or erythema Gait: steady with cane . A/P : 87 y/o lady with h/o HTN, A fib , and MM who presented with palpitations and CP , who was found to have A fib with RVR 1- A fib with RVR. on only baby aspirin at home. not on any AV sharon bobby at home. HR improved but still with walking HR increases to 160 . - increase cardizem to 240 today . - hold losartan to give more room for rate control - [id number] score of 4---> 4.8 % yearly risk of stroke. - with help of commercial lending vice president [id number], d/w her and her daughter the risk of stoke without AC , and risk of bleed with full dose AC. she agreed to be on AC. her options were discussed with her , and will place her on xarelto. Risk of spinal bleed was also discussed . pharmacy was called and xarelto is covered by her insurance . - will not resume asa at dc , has no stents or CAD - Echo with worsening TR and MR compared to previous echo . f/u as out p t 2- Transaminitis : likely due to liver congestion from severe TR. also , possible transient hypotension when in RVR . Meds effect in DDX ( chemotherapy) . unlikely cholecystitis or biliary stones. no RUAQ pain . LFTS have improved - RUQ US unremarkable ( no CBD dialation or cholecystitis ). - cont to trend trend 3- h/o HTN: hold losartan as above 4- Atypical CP : likely due to tachycardia. resolved . ischemic w/u neg 5-MM, out pt f/u HLOC , need more rate control Visit type - Emergency Visit Emergency Visit: Yes ED Registration Date: 03/05/17 Care time: The patient presented to the Emergency Department on the above date and was hospitalized for further evaluation of their emergent condition. - New Patient This patient is new to me today: No - Critical Care Critical Care patient: No
[2017-03-07] MEDS: ENOXAPARIN NA (PORCINE) 60 MG/0.6 ML DISP.SYRIN SQ SCH (09:27)
[2017-03-07] MEDS ORDERED: RIVAROXABAN 20 MG TABLET PO SCH (10:00)
--- NOTE | 2017-03-07 11:03 | PN ---
Progress Note (short form) - Note Progress Note: s: no cp sob palps dizzy o: Vital Signs Period Temp Pulse Resp BP Sys/Duarte Pulse Ox Last 24 Hr 97.2 F-98.0 F 77-94 18-20 95-124/44-82 97-97 nad no jvd irreg s1s2 no mrg cta bl nl eff awake alert appropriate no jaundice diaphoresis abd nt nd pos bs no le e/c/c Current Medications Generic Name Dose Route Start Last Admin Trade Name Freq PRN Reason Stop Dose Admin Diltiazem HCl 240 mg 03/07/17 10:00 03/07/17 09:26 Cardizem Cd - PO 240 mg DAILY ANANT Administration Enoxaparin Sodium 60 mg 03/07/17 09:00 03/07/17 09:27 Lovenox - SQ 60 mg ONCE ANANT Administration Insulin Aspart 1 vial 03/06/17 07:00 03/07/17 06:05 Novolog Vial Sliding Scale - SQ Not Given BIDAC [facility]NANT Protocol Rivaroxaban 20 mg 03/07/17 18:00 Xarelto - PO Q24H ANANT Tramadol HCl 50 mg 03/05/17 23:27 03/06/17 21:44 Ultram - PO 50 mg TID PRN Administration PAIN LEVEL 6-10 CBC, BMP 03/05/17 18:46 03/07/17 05:35 echo 12/2014: nl lv/rv, mild mr, mild ar, mild pr, mild-mod tr, rvsp 50-60 echo 02/2017: low nl lvef, nl rv, mod ella, sev mr, sev tr, mild ar, mod pr, rvsp 40-50 tele: afib, rate fast at times cxr: clear lungs ecg 03/05/17: afib, rate controlled, no ischemic changes, nl qtc a/p: 87 f hx multiple myeloma on chemo, htn, afib here with palps. palps, afib: -no signs acs, ce's neg x2, no ischemic ecg changes -presented with afib with rvr, likely due to poor med compliance -currently rate improved with dilt but still rvr at times so agree with increasing dose today and watching on tele -cont coumadin per INR htn: -controlled, cont current meds valvular dz (mr,ar,pr,tr): -echo shows worsening of mr/tr, clinically no chf -continue to monitor as outpt
[2017-03-07] MEDS: RIVAROXABAN 20 MG TABLET PO SCH (17:56)
[2017-03-08] MEDS: INSULIN SLIDING SCALE (NOVOLOG) 1 VIAL SQ SCH ×2 (06:11→16:36)
[2017-03-08 07:42] LABS: TOT PROT 6.8 g/dl (6.4-8.2)
[2017-03-08 07:50] LABS: BILIRUBIN,DIRECT 0.2 mg/dL (0.0-0.2)
--- NOTE | 2017-03-08 09:47 | PN ---
Progress Note (short form) - Note Progress Note: Subjective: no RAMOS , SOB , L sided chest pain is better now compared to previous days . Objective: Vital Signs: Last Vital Signs Temp Pulse Resp BP Pulse Ox 97.9 F 86 20 121/74 97 03/08/17 05:24 03/08/17 05:24 03/08/17 05:24 03/08/17 05:24 03/07/17 21:00 Laboratory Results - last 24 hr 03/07/17 03/08/17 03/08/17 17:50 05:35 06:08 POC Glucometer 239 98 Total Bilirubin 1.0 D Direct Bilirubin 0.2 AST 84 H ALT 130 H Alkaline Phosphatase 119 H Total Protein 6.8 Albumin 3.0 L Physical Exam: NAD , Awake , alert. CV: irreg irreg , JVD . no MRG Lungs: clear to ascultation Ext : no edema , or erythema A/P : 87 y/o lady with h/o HTN, A fib , and MM who presented with palpitations and CP , who was found to have A fib with RVR 1- A fib with RVR. HR improved but still above goal.and increases withwalking - cont 240 of cardizem - add toprol xl 25 mg for better rate control - cont to hold losartan to give more room for rate control - cont xarelto - Echo with worsening TR and MR compared to previous echo . f/u as out pt 2- Transaminitis : likely due to liver congestion from severe TR. also , possible transient hypotension when in RVR . Meds RUQ US unremarkable ( no CBD dialation or cholecystitis ). - cont to improve 3- h/o HTN: hold losartan to give more room for rate control 4- Atypical CP : likely due to tachycardia. resolved . ischemic w/u neg 5-MM, out pt f/u HLOC , need more rate control Visit type - Emergency Visit Emergency Visit: Yes ED Registration Date: 03/05/17 Care time: The patient presented to the Emergency Department on the above date and was hospitalized for further evaluation of their emergent condition. - New Patient This patient is new to me today: No - Critical Care Critical Care patient: No
[2017-03-08] MEDS: traMADol HCL 50 MG TABLET PO PRN (10:28)
[2017-03-08] MEDS: METOPROLOL SUCCINATE 25 MG TAB.SR.24H (FP) PO SCH (10:28)
--- NOTE | 2017-03-08 10:58 | PN ---
Progress Note (short form) - Note Progress Note: s: no cp sob palps dizzy o: Vital Signs Period Temp Pulse Resp BP Sys/Duarte Pulse Ox Last 24 Hr 97.7 F-98.8 F 82-97 18-20 105-133/59-81 97 nad no jvd irreg s1s2 no mrg cta bl nl eff awake alert appropriate no jaundice diaphoresis abd nt nd pos bs no le e/c/c Current Medications Generic Name Dose Route Start Last Admin Trade Name Freq PRN Reason Stop Dose Admin Diltiazem HCl 240 mg 03/07/17 10:00 03/08/17 10:30 Cardizem Cd - PO 240 mg DAILY ANANT Administration Insulin Aspart 1 vial 03/06/17 07:00 03/08/17 06:11 Novolog Vial Sliding Scale - SQ Not Given BIDAC [facility] Protocol Metoprolol Succinate 25 mg 03/08/17 10:00 03/08/17 10:28 Toprol Xl - PO 25 mg DAILY ANANT Administration Rivaroxaban 20 mg 03/07/17 18:00 03/07/17 17:56 Xarelto - PO 20 mg Q24H ANANT Administration Tramadol HCl 50 mg 03/05/17 23:27 03/08/17 10:28 Ultram - PO 50 mg TID PRN Administration PAIN LEVEL 6-10 CBC, BMP 03/05/17 18:46 03/07/17 05:35 echo 12/2014: nl lv/rv, mild mr, mild ar, mild pr, mild-mod tr, rvsp 50-60 echo 02/2017: low nl lvef, nl rv, mod ella, sev mr, sev tr, mild ar, mod pr, rvsp 40-50 tele: afib, rate controlled at rest but rises to 150s with walking cxr: clear lungs ecg 03/05/17: afib, rate controlled, no ischemic changes, nl qtc a/p: 87 f hx multiple myeloma on chemo, htn, afib here with palps. palps, afib: -no signs acs, ce's neg x2, no ischemic ecg changes -presented with afib with rvr, likely due to poor med compliance -currently rate improved with dilt but still rvr at times with exertion so toprol 25 qd added, cont watching on tele -cont xarelto htn: -controlled, cont current meds valvular dz (mr,ar,pr,tr): -echo shows worsening of mr/tr, clinically no chf -continue to monitor as outpt
[2017-03-08] MEDS: ENOXAPARIN NA (PORCINE) 60 MG/0.6 ML DISP.SYRIN SQ SCH (12:33)
[2017-03-08] MEDS: RIVAROXABAN 20 MG TABLET PO SCH (17:19)
[2017-03-09] MEDS: INSULIN SLIDING SCALE (NOVOLOG) 1 VIAL SQ SCH (06:09)
--- NOTE | 2017-03-09 08:33 | PN ---
Teaching Attending Note Name of Resident: Balbir Estrada ATTENDING PHYSICIAN STATEMENT I saw and evaluated the patient. I reviewed the resident's note and discussed the case with the resident. I agree with the resident's findings and plan as documented. SUBJECTIVE: Resting comfortably denies SOB or chest pain OBJECTIVE: Gen: Alert in NAD CVS: Irreg rhythm rate controlled, no JVD, no murmur appreciated Lungs: CTA, no rhonchi or wheezing Abd: Soft, ND NT, BS present Ext: 2+ pulses ASSESSMENT AND PLAN: Afib with RVR- Discontinue telemetry monitoring and DC home today for continued care by cardiology. Continue diltiazem 240mg daily, metoprolol 25mg daily Xarelto 20mg daily. Transaminitis trending down, recommend continued monitoring as outpatient, repeat LFTs within 3 days. Consider USG if LFTs remain elevated. Patient counselled on medication adherence
--- NOTE | 2017-03-09 09:43 | PN ---
Progress Note, Physician - Current Medication List Current Medications: Active Medications Diltiazem HCl (Cardizem Cd -) 240 mg PO DAILY [facility] Last Admin: 03/08/17 10:30 Dose: 240 mg Insulin Aspart (Novolog Vial Sliding Scale -) 1 vial SQ BIDAC [facility] PRN Reason: Protocol Last Admin: 03/09/17 06:09 Dose: Not Given Metoprolol Succinate (Toprol Xl -) 25 mg PO DAILY [facility] Last Admin: 03/08/17 10:28 Dose: 25 mg Rivaroxaban (Xarelto -) 20 mg PO Q24H [facility] Last Admin: 03/08/17 17:19 Dose: 20 mg - Objective Vital Signs: Vital Signs Temperature 98.2 F 03/09/17 05:23 Pulse Rate 93 H 03/09/17 05:23 Respiratory Rate 18 03/09/17 05:23 Blood Pressure 133/84 03/09/17 05:23 O2 Sat by Pulse Oximetry (%) 97 03/08/17 20:54 Labs: INR, PTT INR 1.22 (0.82-1.09) H 03/07/17 05:35 - ....Imaging EKG: Other (tele: Afib, to 120s-140s often) Assessment/Plan echo 12/2014: nl lv/rv, mild mr, mild ar, mild pr, mild-mod tr, rvsp 50-60 echo 02/2017 (here): low nl lvef, nl rv, mod ella, sev mr, sev tr, mild ar, mod pr, rvsp 40-50 cxr: clear lungs ecg 03/05/17: afib, rate controlled, no ischemic changes, nl qtc a/p: 87 f hx multiple myeloma on chemo, htn, afib here with palps. palps, afib: -no signs acs, ce's neg x2, no ischemic ecg changes -presented with afib with rvr, likely due to poor med compliance -rate improved here with dilt but still rvr at times with exertion so toprol 25 qd added -03/09: remains poorly controlled HRs, incr metoprolol to 50 qd -SBPs 90s at times here--consider digoxin if cannot tolerate CCB/BB -preserved LVEF -monitor tele -cont xarelto htn: -controlled, cont current meds valvular dz: MR, TR -echo shows worsening of mr/tr, clinically no chf -suspect may be due to uncontrolled afib (+/- with occult elevated LV filling pressure) -rec repeat echo as outpt once AF optimized, in 6-12 wks elevated AST/LT: -trending down -Xarelto can cause transaminitis--was previously rx'd this med, unclear if was complying at home or not--resumed here -monitor labs trend closely--if does not resolve, would switch to eliquis. if LFTs resolve here, would cont xarelto but needs close outpt lab monitoring
[2017-03-09] MEDS: METOPROLOL SUCCINATE 25 MG TAB.SR.24H (FP) PO SCH (09:47)
[2017-03-09] MEDS ORDERED: METOPROLOL SUCCINATE 50 MG TAB.SR.24H (FP) PO SCH (11:42)
[2017-03-09] MEDS ORDERED: METOPROLOL SUCCINATE 25 MG TAB.SR.24H (FP) PO ONE (12:00)
[2017-03-09 14:46] VITALS: BP 101/65; PULSE 79; TEMP 97.9
[2017-03-09] MEDS ORDERED: PANTOPRAZOLE 40 MG TABLET (FP) PO SCH (15:15)
--- NOTE | 2017-03-09 15:54 | DS ---
Physical Exam: SUBJECTIVE: Patient seen and examined at bedside. No acute events overnight. Pt has no complaints at this time. Pt denies headache, cp, sob, abd pain, nausea, vomiting, diarrhea, dysuria, fever. OBJECTIVE: Vital Signs Period Temp Pulse Resp BP Sys/Duarte Pulse Ox Last 24 Hr 97.6 F-97.9 F 79-98 18-20 101-136/65-94 PHYSICAL EXAM GENERAL: The patient is awake, alert, and fully oriented, in no acute distress. HEAD: Normal with no signs of trauma. EYES: sclera anicteric, conjunctiva clear. ENT: oropharynx clear without exudates, moist mucous membranes. NECK: Trachea midline, full range of motion, supple. LUNGS: Breath sounds equal, clear to auscultation bilaterally, no wheezes, no crackles, no accessory muscle use. HEART: Regular rate and rhythm, normal S1, S2 without murmur, rub or gallop. ABDOMEN: Soft, nontender, nondistended, normoactive bowel sounds, no guarding, no rebound, no hepatosplenomegaly, no masses. EXTREMITIES: 2+ pulses, warm, well-perfused, no edema. NEUROLOGICAL: Cranial nerves II through XII grossly intact. Normal speech, gait not observed. PSYCH: Normal mood, normal affect. SKIN: Warm, dry, normal turgor, no rashes or lesions noted. LABS HOSPITAL COURSE: Date of Admission:03/09/17 Date of Discharge: 03/09/17 This is an 87 year old female with significant medical hx of multiple myeloma ( chemotherapy biweekly), HTN, and artial fibrillation who is presenting to the ED with episode of rapid heart rate, patient was admitted for cardiac tele for new onset of AFIB ( HR 126) with rapid ventricular response, and for acute chest pain to R/O ACS. #r/o ACS -Pain is midsternal, pressure-like, reproducible, unrelated to activity, and pt states it resolves completely with the application of "vapor rub" every time -Tn neg x3 -CXR no acute pathology -Echo: severe mitral and tricuspid regurg -repeat EKG neg for ST elevations # AFIb, -CHA2 DS2 Vasc score of 4 -HAS BLED score 2 -Repeat EKG in the morning -trend trop -TSH to R/O hyperthyroidism -CXR shows no acute pathology -Echocardiogram -cardiac observation -PTT/INR -Lipid profile -Lovenox 60 mg SQ BID -start Diltiazem 60 mg PO TID. -cardiac consult # HTN , controlled -Continue Home meds Losartan 50 MG PO BID -BP monitor -low sodium diet # Transaminitis : -?? 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 While you were here, you were seen by the Internal medicine team and the Homogenizer Operator. Your heart was monitored, and the monitor showed that you have atrial fibrillation. This is a disease where the top part of the heart beats too fast. You are being discharged home , and you need to manage this problem as an out patient with your doctor. Your treatment involves medications. You have an appointment with Dr. De Oliveira in 4 days. Your liver enzymes should be checked at that time. You have an appointment with Dr. De Oliveira in 1 week. You are being sent home with diltiazem 240mg daily, metoprolol 25mg daily, and Xarelto 20mg daily. When you take Xarelto, the liver enzymes might get elevated as a side effect, so please follow up closely as outpatient. Please make sure you take your medications as directed. Please make sure you make your appointments with your doctors. If your symptoms return, or if you develop new symptoms, please come back to the emergency room. Referrals: Drake De Oliveira MD [Staff Physician] - 1 Week Domitila Fish MD [Primary Care Provider] - 1 Week Disposition: HOME - Home Medications Comprehensive Discharge Medication List: Ambulatory Orders Losartan Potassium 50 mg PO DAILY 10/26/15 Tramadol HCl 50 mg PO TID 03/05/17 Diltiazem Cd [Cardizem Cd -] 240 mg PO DAILY #30 cap 03/09/17 Metoprolol Succinate [Toprol XL -] 50 mg PO DAILY #30 cap 03/09/17 Pantoprazole Sodium [Protonix -] 40 mg PO DAILY #30 tablet.ec 03/09/17 Rivaroxaban [Xarelto -] 20 mg PO DAILY #30 tablet 03/09/17 Miscellaneous Drug Not In Syst [Outpatient Lab Test] 1 each ASDIR #1 misc This patient is new to me today: Yes Date on this admission: 03/10/17 Emergency Visit: No Critical Care patient: No - Discharge Referral Referred to [facility] No
== END 2017-03-09 18:15 | disposition home or self-care (01) | DRG 201 ==
LOC: JER 18:12 → SUPCPDRO 18:12 → INTOOBSV 22:26 → JERBED 22:26 → J4W 23:30 → OBSVTOIN 03-09 09:23
PROVIDERS: ADMIT Internal Medicine; ATTEND Internal Medicine
DX: I48.91 Unspecified atrial fibrillation (principal); C90.00 Multiple myeloma not having achieved remission; I10 Essential (primary) hypertension; I34.0 Nonrheumatic mitral (valve) insufficiency; I36.1 Nonrheumatic tricuspid (valve) insufficiency; R74.0 Nonspecific elevation of levels of transaminase and lactic acid dehydrogenase [LDH]; R07.9 Chest pain, unspecified; Z91.14 Patient's other noncompliance with medication regimen
CPT/HCPCS: 36415; 71010-TC; 76700-TC; 80053; 80061; 80076; 81003; 82550; 83036; 83721; 83735; 84443; 84484; 85025; 85610; 93005; 93010; 93306-TC; 99285-25; G0378

== ENCOUNTER 2019-04-30 09:09 | Inpatient (IN) | payer OTHER ==
[2019-04-30 09:20] VITALS: BMI 23.3
--- NOTE | 2019-04-30 09:31 | PDOC ---
History of Present Illness - General Chief Complaint: Sore Throat Stated Complaint: SORE THROAT/ WEAKNESS Time Seen by Provider: 04/30/19 09:29 - History of Present Illness Initial Comments: 04/30/19 10:03 89 y/o//f here for sore throat and weakness. As per the daughter the patient had a sore throat and pain with swallowing for the last 2 days. Yesterday she had swelling of her lips, she spoke with Dr. Osman, who prescribed her Benadryl. Daugther gave her benardyl twice yesterday with improvement. Patient also complaining of back pain since yesterday after she was in a car ride, she was not involved in any accidents. She has pain in her lower back when walking but denies any back pain currently. She has had a mild cough as well as per the daughter. She complains of shortness of breath. She denies any chest pain, fever , N/V/D, constipation, or dizziness. As per the daughter the patient took her home meds this morning. PMHx: Multiple Myeloma, HTN, arrythmia SHx: denies Social: denies any tobacco, alcohol, or other drug use. Medications: Ixazomib, Tylenol 500mg, Xarelto, Metoprolol, Diltiazem Past History - Past Medical History Allergies/Adverse Reactions: Allergies Allergy/AdvReac Type Severity Reaction Status Date / Time lisinopril Allergy Verified 04/30/19 09:16 oxycodone HCl Allergy Verified 04/30/19 09:16 [From OxyContin] Penicillins Allergy Verified 04/30/19 09:16 Home Medications: Ambulatory Orders Metoprolol Succinate [Toprol XL -] 50 mg PO DAILY #30 cap 03/09/17 Rivaroxaban [Xarelto -] 20 mg PO DAILY #30 tablet 03/09/17 Acetaminophen [Tylenol .Extra-Strength -] 04/30/19 Diltiazem Cd [Cardizem Cd -] 180 mg PO DAILY 04/30/19 Asthma: No Cancer: Yes (skin) Cardiac Disorders: Yes (arrythmia,Afib 3yrs ago) COPD: No CHF: No Diabetes: No HTN: Yes Hypercholesterolemia: No - Suicide/Smoking/Psychosocial Hx Smoking Status: No Smoking History: Never smoked Have you smoked in the past 12 months: No Number of Cigarettes Smoked Daily: 0 Hx Alcohol Use: No Drug/Substance Use Hx: No Substance Use Type: None Review of Systems - Review of Systems Able to Perform ROS?: Yes Constitutional: Yes: Weakness HEENTM: Yes: Throat Pain. No: Nose Congestion Respiratory: Yes: Cough, Shortness of Breath Cardiac (ROS): No: Chest Pain, Lightheadedness ABD/GI: No: Diarrhea, Nausea, Vomiting, Abdominal cramping : No: Dysuria, Hematuria Musculoskeletal: Yes: Back Pain Integumentary: Yes: Dryness Neurological: No: Headache, Numbness *Physical Exam - Vital Signs Last Vital Signs Temp Pulse Resp BP Pulse Ox 98.5 F 98 H 18 138/83 87 L 04/30/19 09:12 04/30/19 09:12 04/30/19 09:12 04/30/19 09:12 04/30/19 09:12 - Physical Exam General Appearance: Yes: Mild Distress HEENT: positive: EOMI, Symmetrical, Other (no swelling of lips noted ). negative: Pharyngeal Erythema, Rhinorrhea Neck: positive: Trachea midline, Supple Respiratory/Chest: positive: Other (decreased breath sounds in right lower lung , left lung clear to ausculatation). negative: Chest Tender, Accessory Muscle Use, Wheezing Cardiovascular: positive: Tachycardia, Irregularly Irregular Gastrointestinal/Abdominal: positive: Soft. negative: Tender Musculoskeletal: negative: Vertebral Tenderness Extremity: positive: Swelling (2+ non pitting edema of both legs) Integumentary: positive: Dry Neurologic: positive: Fully Oriented, Alert, Normal Mood/Affect Heart Score/ECG Review #1 ECG reviewed & interpreted by me at: 10:31 General ECG Interpretation: No acute ischemic changes 04/30/19 10:31 vent rate: 146bpm QRS duration: 88ms QT/QTc 324/504ms P-R-T axes: * 164 0 Atrial fibrillation with RVR no acute ischemic changes noted ED Treatment Course - LABORATORY CBC & Chemistry Diagram: 04/30/19 10:11 04/30/19 10:11 Medical Decision Making - Medical Decision Making 04/30/19 10:18 89 y/o//f here for sore throat and weakness. Patient has PMHx of Multiple Myeloma, arrythmia, HTN. Episode of lip swelling yesterday, PMD Dr. Osman prescribed Benadryl. Patient has taken Benadryl twice. Currently complains of sore throat. No complaints of back pain currently. CBC, CMP, cardiac profile, lactic acid, blood cultures, UA, urine culture, Coags , CXR ordered to evaluate. EKG reviewed: A fib with RVR. No acute ischemic changes. Patient given Diltiazem IV for tachycardia. 04/30/19 10:51 CXR read - large heart, folded aorta, congestive changes and blunting of the right angle indicative of fluid. Patients vitals: HR 91, 93% O2 on nasal cannula, 100/67 BP, 16 RR 04/30/19 11:48 CBC shows decreased WBC at 2.4. Trops negative. Elevated LFTs, alk phos, CK. Coags elevated - patient on Xarelto UA negative for UTI. Consulting cardiology service. Will likely admit patient for CHF. 04/30/19 12:[address] Ojeda, cardiology. suggested to give her Lasix 40mg. 04/30/19 14:09 Patient admitted to telemetry under Dr. Frias. Spoke to patient regarding patient's wishes on resuscitation status in case of emergency. Daughter states she believes her mother would like to be DNR, DNI but they have not explicitly discussed her wishes but will discuss. *DC/Admit/Observation/Transfer Diagnosis at time of Disposition: CHF (congestive heart failure) Qualifiers: Heart failure type: unspecified Heart failure chronicity: acute Qualified Code( s): I50.9 - Heart failure, unspecified - Discharge Dispostion Condition at time of disposition: Stable - Referrals Referrals: Domitila Fish MD [Primary Care Provider] - - Patient Instructions - Post Discharge Activity
--- NOTE | 2019-04-30 09:33 | PDOC ---
Attending Attestation - Resident Resident Name: Ha Cuevasbertagali Michael - ED Attending Attestation I have performed the following: I have examined & evaluated the patient, The case was reviewed & discussed with the resident, I agree w/resident's findings & plan, Exceptions are as noted - HPI HPI: 89 yo F presents with weakness. She had a recent sore throat and painful swallowing with swelling of her lips, was treated with benadryl by PMD and symptoms resolved. However, she states that she continues to feel weakness. Weakness is diffuse, worse with any exertion. She also notes SOB with exertion recently. She notes extreme fatigue when trying to do anything. - Physicial Exam PE: GENERAL: Awake, alert, and fully oriented, in no acute distress HEAD: No signs of trauma EYES: PERRLA, EOMI, sclera anicteric, conjunctiva clear ENT: Auricles normal inspection, hearing grossly normal, nares patent, oropharynx clear without exudates. Moist mucosa NECK: Normal ROM, supple, no lymphadenopathy, JVD, or masses LUNGS: Breath sounds equal, good air entry B/L. +Crackles at the bases B/L HEART: Regular rate and rhythm, normal S1 and S2, no murmurs, rubs or gallops ABDOMEN: Soft, nontender, normoactive bowel sounds. No guarding, no rebound. No masses EXTREMITIES: Normal range of motion, 1+ pitting edema to mid-jimenez B/L. No clubbing or cyanosis. No cords, erythema, or tenderness NEUROLOGICAL: Cranial nerves II through XII grossly intact. Normal speech. Motor and sensation intact SKIN: Warm, dry, normal turgor, no rashes or lesions noted. - Medical Decision Making Pt with signs of CHF (edema, crackles in lungs, BERMAN, fatigue; prior enlarged heart on CXR, now with R effusion), no prior known history of CHF. Will obtain labs, and plan for admission.
[2019-04-30] MEDS ORDERED: dilTIAZem HCL 50 MG/10 ML - 10 ML VIAL IVPUSH ONE (09:50)
[2019-04-30] MEDS ORDERED: dilTIAZem HCL 50 MG/10 ML - 10 ML VIAL ONE (10:09)
[2019-04-30 10:53] LABS: BASO % 0.2 % (0-2.0); HEMOGLOBIN 11.8 GM/dL (10.7-15.3); LYMPH % 14.8 % (8-40); MCHC 32.6 g/dl (32.0-36.0); MEAN CELL VOLUME 95.1 fl (80-96); MEAN PLT VOLUME 9.6 fl (7.5-11.1); MONO % 8.8 % (3.8-10.2); NEUT % 76.2 % (42.8-82.8); PLATELET COUNT 66 K/MM3 (134-434); RBC 3.79 M/mm3 (3.60-5.2); RDW 18.3 % (11.6-15.6); WHITE BLOOD COUNT 2.4 K/mm3 (4.0-10.0)
[2019-04-30 11:05] LABS: INR 2.08 (0.83-1.09); PROTHROMBIN TIME (PATIENT) 24.7 SEC (9.7-13.0)
[2019-04-30 11:13] LABS: PH,URINE 5.5 (5.0-8.0); URINE APPEARANCE Clear; URINE BILIRUBIN Negative (NEGATIVE); URINE COLOR Yellow; URINE GLUCOSE (UA) Negative (NEGATIVE); URINE KETONE Negative (NEGATIVE); URINE LEUK ESTERASE Negative (NEGATIVE); URINE NITRITE Negative (NEGATIVE); URINE PROTEIN 1+ (NEGATIVE); URINE UROBILINOGEN 0.2 mg/dL (0.2-1.0)
[2019-04-30 11:17] LABS: EPI CELLS 2.9 /HPF (0-5/HPF); HYALINE CASTS 2.61 /lpf (0-8); URINE BACTERIA 9.1 /hpf (NEGATIVE); URINE RBC 1.2 /hpf (0-4); URINE WBC 0.8 /hpf (0-5)
[2019-04-30 11:29] LABS: ALBUMIN 3.1 g/dl (3.4-5.0); BILIRUBIN,TOTAL 0.8 mg/dL (0.2-1); BLOOD UREA NITROGEN 10.3 mg/dL (7-18); CALCIUM 8.7 mg/dL (8.5-10.1); CREATININE 0.9 mg/dL (0.55-1.3); POTASSIUM 3.9 mmol/L (3.5-5.1); TOT PROT 7.1 g/dl (6.4-8.2)
[2019-04-30] MEDS ORDERED: FUROSEMIDE 40 MG/4 ML INJECTABLE VIAL IVPUSH ONE (12:36)
[2019-04-30] MEDS ORDERED: FUROSEMIDE 40 MG/4 ML INJECTABLE VIAL ONE (12:42)
[2019-04-30 13:22] LABS: ANISOCYTOSIS 0; MACROCYTOSIS 1+; OVALOCYTE 1+; PLATELET ESTIMATE DECREASED
[2019-04-30 13:26] LABS: TOXIC GRANULATION 1+
--- NOTE | 2019-04-30 14:02 | HP ---
CHIEF COMPLAINT: Weakness/SOB PCP: Dr. De Oliveira Cardiology coverage with Dr. Ojeda; phoned by ER. HISTORY OF PRESENT ILLNESS: Thank you Dr. De Oliveira for allowing us to provide coverage for your patient. This is a 89 y/o female presenting to the ER with a CC of weakness and SOB; she has a known history of Afib with elevated CHADSVASC2 score and is on Xarelto. She has a history of multiple myeloma being actively managed on chemotherapy. She is found to be in afib with RVR on presentation with HR elevated to the 140s. She denied chest pain but did endorse dyspnea that was somewhat worse with activity. She was given a push of diltiazem and cardiology was called and I am told that they recommended lasix. She was noted to improve symptomatically after this was given. BP is stable, HR now in 90s. Appropriate for telemetry. Leukopenia noted. Recent Travel: None PAST MEDICAL HISTORY: As described; Severe valvular heart disease (MR/TR per 2017 echo that may have been worsening due to the uncontrolled AF; was on xarelto at that time so it was continued inpatient by CV), Low normal EF on 2017 echo with repeat pending, Atrial Fibrillation with elevated CV2 score (on xarelto in past now with elevated INR and known valvular etiology, calling pharmacy to verify medications) PAST SURGICAL HISTORY: No prior cardiac surgery Social History: No current EtOH, drug, or tobacco abuse Family History: No premature cardiac noted Allergies lisinopril Allergy (Verified 04/30/19 09:16) oxycodone HCl [From OxyContin] Allergy (Verified 04/30/19 09:16) Penicillins Allergy (Verified 04/30/19 09:16) HOME MEDICATIONS: Home Medications Medication Instructions Recorded Metoprolol Succinate [Toprol XL -] 50 mg PO DAILY #30 cap 03/09/17 Rivaroxaban [Xarelto -] 20 mg PO DAILY #30 tablet 03/09/17 Acetaminophen [Tylenol 04/30/19 .Extra-Strength -] Diltiazem Cd [Cardizem Cd -] 180 mg PO DAILY 04/30/19 REVIEW OF SYSTEMS 10 sys ROS done and negative aside from HPI PHYSICAL EXAMINATION Vital Signs - 24 hr 04/30/19 04/30/19 04/30/19 09:12 09:45 10:00 Temperature 98.5 F Pulse Rate 98 H Pulse Rate [ 141 H Apical] Respiratory 18 20 Rate Blood Pressure 138/83 Blood Pressure 134/100 [Right Arm] O2 Sat by Pulse 87 L 93 L 94 L Oximetry (%) 04/30/19 04/30/19 04/30/19 10:15 10:36 12:50 Temperature Pulse Rate Pulse Rate [ 125 H 88 93 H Apical] Respiratory 20 23 H Rate Blood Pressure Blood Pressure 112/91 100/67 106/67 [Right Arm] O2 Sat by Pulse 94 L 95 Oximetry (%) GENERAL: Awake, alert, and fully oriented, in no acute distress. HEAD: Normal with no signs of trauma. EYES: Pupils equal, round and reactive to light, extraocular movements intact, sclera anicteric, conjunctiva clear. No lid lag. EARS, NOSE, THROAT: Ears normal, nares patent, oropharynx clear without exudates. Moist mucous membranes. NECK: Normal range of motion, supple without lymphadenopathy, JVD, or masses. LUNGS: Breath sounds equal, some minor crackles R>L HEART: Iregular rate and rhythm but in general in 90s on monitor, s1/2 heard ABDOMEN: Soft, nontender, not distended, normoactive bowel sounds MUSCULOSKELETAL: Normal range of motion at all joints. No bony deformities or tenderness. No CVA tenderness. UPPER EXTREMITIES: 2+ pulses, warm, well-perfused. No cyanosis PSYCHIATRIC: Cooperative. Good eye contact. Appropriate mood and affect. SKIN: Warm, dry, normal turgor, no rashes or lesions noted, normal capillary refill. Laboratory Results - last 24 hr 04/30/19 04/30/19 04/30/19 10:11 10:11 10:11 WBC 2.4 L RBC 3.79 Hgb 11.8 Hct 36.0 MCV 95.1 MCH 31.0 MCHC 32.6 RDW 18.3 H Plt Count 66 L D MPV 9.6 D Absolute Neuts (auto) 1.8 Neutrophils % 76.2 D Neutrophils % (Manual) 65.6 Band Neutrophils % 7.3 Lymphocytes % 14.8 D Lymphocytes % (Manual) 16.7 Monocytes % 8.8 Monocytes % (Manual) 10 Eosinophils % 0.0 D Eosinophils % (Manual) 0.0 Basophils % 0.2 Basophils % (Manual) 0.0 Myelocytes % (Man) 0 Promyelocytes % (Man) 0 Blast Cells % (Manual) 0 Nucleated RBC % 0 Metamyelocytes 0 Hypochromia 0 Toxic Granulation 1+ Platelet Estimate Decreased Platelet Comment No clumping noted Polychromasia 0 Poikilocytosis 1+ Anisocytosis 0 Microcytosis 0 Macrocytosis 1+ Ovalocytes 1+ Schistocytes 1+ PT with INR INR Sodium 137 Potassium 3.9 Chloride 105 Carbon Dioxide 27 Anion Gap 5 L BUN 10.3 Creatinine 0.9 Est GFR (CKD-EPI)AfAm 66.63 Est GFR (CKD-EPI)NonAf 57.49 Random Glucose 135 H Lactic Acid Calcium 8.7 Total Bilirubin 0.8 AST 71 H ALT 66 H Alkaline Phosphatase 120 H Creatine Kinase 225 H Creatine Kinase Index 0.5 CK-MB (CK-2) 1.3 Troponin I < 0.02 B-Natriuretic Peptide 2857.0 H Total Protein 7.1 Albumin 3.1 L Urine Color Urine Appearance Urine pH Ur Specific [place] Urine Protein Urine Glucose (UA) Urine Ketones Urine Blood Urine Nitrite Urine Bilirubin Urine Urobilinogen Ur Leukocyte Esterase Urine WBC (Auto) Urine RBC (Auto) Urine Casts (Auto) U Epithel Cells (Auto) Urine Bacteria (Auto) 04/30/19 04/30/19 04/30/19 10:11 10:11 10:50 WBC RBC Hgb Hct MCV MCH MCHC RDW Plt Count MPV Absolute Neuts (auto) Neutrophils % Neutrophils % (Manual) Band Neutrophils % Lymphocytes % Lymphocytes % (Manual) Monocytes % Monocytes % (Manual) Eosinophils % Eosinophils % (Manual) Basophils % Basophils % (Manual) Myelocytes % (Man) Promyelocytes % (Man) Blast Cells % (Manual) Nucleated RBC % Metamyelocytes Hypochromia Toxic Granulation Platelet Estimate Platelet Comment Polychromasia Poikilocytosis Anisocytosis Microcytosis Macrocytosis Ovalocytes Schistocytes PT with INR 24.70 H INR 2.08 H Sodium Potassium Chloride Carbon Dioxide Anion Gap BUN Creatinine Est GFR (CKD-EPI)AfAm Est GFR (CKD-EPI)NonAf Random Glucose Lactic Acid 1.8 Calcium Total Bilirubin AST ALT Alkaline Phosphatase Creatine Kinase Creatine Kinase Index CK-MB (CK-2) Troponin I B-Natriuretic Peptide Total Protein Albumin Urine Color Yellow Urine Appearance Clear Urine pH 5.5 Ur Specific [place] 1.020 Urine Protein 1+ H Urine Glucose (UA) Negative Urine Ketones Negative Urine Blood Trace-intact Urine Nitrite Negative Urine Bilirubin Negative Urine Urobilinogen 0.2 Ur Leukocyte Esterase Negative Urine WBC (Auto) 0.8 Urine RBC (Auto) 1.2 Urine Casts (Auto) 2.61 U Epithel Cells (Auto) 2.9 Urine Bacteria (Auto) 9.1 EKG reviewed; cardiac monitoring ordered for placement on telemetry CXR reviewed; [id number] report shows cardiomegaly and folded aorta with congestive changes and R-sided costophrenic blunting. She has R-sided effusion. 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 (PER CV note 2017) echo 12/2014: nl lv/rv, mild mr, mild ar, mild pr, mild-mod tr, rvsp 50-60 echo 02/2017 [facility]: low nl lvef, nl rv, mod ella, sev mr, sev tr, mild ar, mod pr , rvsp 40-50 ASSESSMENT/PLAN: Patient with a history of severe valvular disease (may have been worse on echo uncontrolled AF at time of study) and known low-nl LVEF presents with weakness, BERMAN found to have afib with RVR and fluid overload. Treating for CHF. She had a low BP after IV push dilitazem so held overnight and restarting in AM as pressure holding. Fractioned metoprolol. Monitoring on tele with CV consult. She had some lip swelling and throat pain at home. ? Chemo rxn-[facility] oncology told her to take benadryl. No lip swelling here, no s/s angioedema. Lisinopril allergy noted but no recent BEBE/ARB exposure. Consulting oncology, monitoring. Of course if swelling seen will give H bobby/steroid. Problems include: -Afib with RVR (elevated CV2 score on xarelto, possible valvular component. MT 12.5 Q6H [on 50 MS at home] and hold dilt overnight as slight hypotension following IVP. IV BB to control HR overnight if needed. BP recovered. ) -Possible severe valvular disease (per 2017 echo but issue with AF control; followup with CV to see if corrected on OP study. No relayed history of valvuloplasty, etc. Followup with CV) -Fluid overload with elevated BNP (known low normal lvef with valvular heart disease; could be rate related or organic CHF. Discuss with CV. Responded well to diuresis. Optimize Mg, K. Strict Is and Os, etc.) -Lip Swelling/Chemo rxn? (None noted now; H blockers/steroids if seen. Airway completely patent with no issues noted at 7P) -Multiple myeloma on chemo with leukopenia/thrombocytopenia (stable; continue home xarelto, no bleeding, consulted oncology. Appreciate expert opinion in the ongoing management of this patient. Home chemotherapeutic agent noted; would be helpful to get OP records on Thursday) -Hx HTN (stable) Dispo: Telemetry; pending diuresis, titration of rate control medication, and cardiac assessment from subspecialty services. Will require full admission Full Code Visit type - Emergency Visit Emergency Visit: Yes ED Registration Date: 04/30/19 Care time: The patient presented to the Emergency Department on the above date and was hospitalized for further evaluation of their emergent condition. - New Patient This patient is new to me today: Yes Date on this admission: 05/01/19 - Critical Care Critical Care patient: No
[2019-04-30] MEDS ORDERED: SODIUM CHLORIDE 0.9% 500 ML INFUS.BAG IV ONE (15:19)
[2019-04-30 19:50] LABS: MAGNESIUM 1.8 mg/dL (1.8-2.4)
[2019-04-30] MEDS: METOPROLOL TARTRATE 25 MG TABLET (FP) PO SCH (22:42)
[2019-05-01] MEDS: METOPROLOL TARTRATE 25 MG TABLET (FP) PO SCH ×4 (03:25→21:55)
[2019-05-01 07:23] LABS: BILIRUBIN,TOTAL 0.7 mg/dL (0.2-1); BLOOD UREA NITROGEN 10.7 mg/dL (7-18); CALCIUM 8.1 mg/dL (8.5-10.1); CREATININE 0.8 mg/dL (0.55-1.3); POTASSIUM 3.6 mmol/L (3.5-5.1); TOT PROT 6.7 g/dl (6.4-8.2)
[2019-05-01 07:29] LABS: INR 1.32 (0.83-1.09); PROTHROMBIN TIME (PATIENT) 15.6 SEC (9.7-13.0)
[2019-05-01 07:32] LABS: HEMATOCRIT 34.7 % (32.4-45.2); HEMOGLOBIN 11.3 GM/dL (10.7-15.3); MCH 30.9 pg (25.7-33.7); MCHC 32.5 g/dl (32.0-36.0); MEAN CELL VOLUME 95.2 fl (80-96); MEAN PLT VOLUME 9.8 fl (7.5-11.1); PLATELET COUNT 60 K/MM3 (134-434); RBC 3.64 M/mm3 (3.60-5.2); RDW 18.4 % (11.6-15.6); WHITE BLOOD COUNT 1.8 K/mm3 (4.0-10.0)
--- NOTE | 2019-05-01 08:43 | PN ---
Physical Exam: SUBJECTIVE: Patient seen and examined; no issues communicated to me from overnight. HR controlled, BP improved. Restarting dilt. I speak a good amount of [place] and the family assisted in providing additional translation. Reviewed cardiology consultation 10 sys ROS done and negative aside from HPI OBJECTIVE: Vital Signs Period Temp Pulse Resp BP Sys/Duarte Pulse Ox Last 24 Hr 98.0 F-98.6 F 71-141 18-23 87-138/56-100 87-97 GENERAL: The patient is awake, alert, and fully oriented, in no acute distress. O2 via NC HEAD: Normal with no signs of trauma. No swelling, angioedema, etc. noted. EYES: PERRL, extraocular movements intact, sclera anicteric ENT: Ears normal, nares patent, oropharynx clear without exudates NECK: Trachea midline, full range of motion, supple. JVD noted; slightly improved compared to yesterday LUNGS: Breath sounds equal, clear to auscultation bilaterally, no wheezes, minimal crackles, no accessory muscle use. HEART: Irregular rate, normal rhythm. Tele reviewed. Mod sys murmur heard, s1/ 2 ABDOMEN: Soft, nontender, nondistended, normoactive bowel sounds, no guarding EXTREMITIES: 2+ pulses, warm, well-perfused, 1+ edema (improved from yesterday) NEUROLOGICAL: Cranial nerves II through XII grossly intact. Normal speech, gait not observed. PSYCH: Normal mood, normal affect. SKIN: Warm, dry, normal turgor, no rashes or lesions noted. Laboratory Results - last 24 hr 04/30/19 04/30/19 04/30/19 10:11 10:11 10:11 WBC 2.4 L RBC 3.79 Hgb 11.8 Hct 36.0 MCV 95.1 MCH 31.0 MCHC 32.6 RDW 18.3 H Plt Count 66 L D MPV 9.6 D Absolute Neuts (auto) 1.8 Neutrophils % 76.2 D Neutrophils % (Manual) 65.6 Band Neutrophils % 7.3 Lymphocytes % 14.8 D Lymphocytes % (Manual) 16.7 Monocytes % 8.8 Monocytes % (Manual) 10 Eosinophils % 0.0 D Eosinophils % (Manual) 0.0 Basophils % 0.2 Basophils % (Manual) 0.0 Myelocytes % (Man) 0 Promyelocytes % (Man) 0 Blast Cells % (Manual) 0 Nucleated RBC % 0 Metamyelocytes 0 Hypochromia 0 Toxic Granulation 1+ Platelet Estimate Decreased Platelet Comment No clumping noted Polychromasia 0 Poikilocytosis 1+ Anisocytosis 0 Microcytosis 0 Macrocytosis 1+ Ovalocytes 1+ Schistocytes 1+ PT with INR INR Sodium 137 Potassium 3.9 Chloride 105 Carbon Dioxide 27 Anion Gap 5 L BUN 10.3 Creatinine 0.9 Est GFR (CKD-EPI)AfAm 66.63 Est GFR (CKD-EPI)NonAf 57.49 Random Glucose 135 H Lactic Acid Calcium 8.7 Magnesium Total Bilirubin 0.8 AST 71 H ALT 66 H Alkaline Phosphatase 120 H Creatine Kinase 225 H Creatine Kinase Index 0.5 CK-MB (CK-2) 1.3 Troponin I < 0.02 B-Natriuretic Peptide 2857.0 H Total Protein 7.1 Albumin 3.1 L TSH 4.85 H Free T4 Urine Color Urine Appearance Urine pH Ur Specific [place] Urine Protein Urine Glucose (UA) Urine Ketones Urine Blood Urine Nitrite Urine Bilirubin Urine Urobilinogen Ur Leukocyte Esterase Urine WBC (Auto) Urine RBC (Auto) Urine Casts (Auto) U Epithel Cells (Auto) Urine Bacteria (Auto) 04/30/19 04/30/19 04/30/19 10:11 10:11 10:50 WBC RBC Hgb Hct MCV MCH MCHC RDW Plt Count MPV Absolute Neuts (auto) Neutrophils % Neutrophils % (Manual) Band Neutrophils % Lymphocytes % Lymphocytes % (Manual) Monocytes % Monocytes % (Manual) Eosinophils % Eosinophils % (Manual) Basophils % Basophils % (Manual) Myelocytes % (Man) Promyelocytes % (Man) Blast Cells % (Manual) Nucleated RBC % Metamyelocytes Hypochromia Toxic Granulation Platelet Estimate Platelet Comment Polychromasia Poikilocytosis Anisocytosis Microcytosis Macrocytosis Ovalocytes Schistocytes PT with INR 24.70 H INR 2.08 H Sodium Potassium Chloride Carbon Dioxide Anion Gap BUN Creatinine Est GFR (CKD-EPI)AfAm Est GFR (CKD-EPI)NonAf Random Glucose Lactic Acid 1.8 Calcium Magnesium Total Bilirubin AST ALT Alkaline Phosphatase Creatine Kinase Creatine Kinase Index CK-MB (CK-2) Troponin I B-Natriuretic Peptide Total Protein Albumin TSH Free T4 Urine Color Yellow Urine Appearance Clear Urine pH 5.5 Ur Specific [place] 1.020 Urine Protein 1+ H Urine Glucose (UA) Negative Urine Ketones Negative Urine Blood Trace-intact Urine Nitrite Negative Urine Bilirubin Negative Urine Urobilinogen 0.2 Ur Leukocyte Esterase Negative Urine WBC (Auto) 0.8 Urine RBC (Auto) 1.2 Urine Casts (Auto) 2.61 U Epithel Cells (Auto) 2.9 Urine Bacteria (Auto) 9.1 04/30/19 05/01/19 05/01/19 19:08 06:05 06:05 WBC 1.8 L* RBC 3.64 Hgb 11.3 Hct 34.7 MCV 95.2 MCH 30.9 MCHC 32.5 RDW 18.4 H Plt Count 60 L MPV 9.8 Absolute Neuts (auto) Neutrophils % Neutrophils % (Manual) Band Neutrophils % Lymphocytes % Lymphocytes % (Manual) Monocytes % Monocytes % (Manual) Eosinophils % Eosinophils % (Manual) Basophils % Basophils % (Manual) Myelocytes % (Man) Promyelocytes % (Man) Blast Cells % (Manual) Nucleated RBC % Metamyelocytes Hypochromia Toxic Granulation Platelet Estimate Platelet Comment Polychromasia Poikilocytosis Anisocytosis Microcytosis Macrocytosis Ovalocytes Schistocytes PT with INR 15.60 H INR 1.32 H Sodium Potassium Chloride Carbon Dioxide Anion Gap BUN Creatinine Est GFR (CKD-EPI)AfAm Est GFR (CKD-EPI)NonAf Random Glucose Lactic Acid Calcium Magnesium 1.8 Total Bilirubin AST ALT Alkaline Phosphatase Creatine Kinase 103 Creatine Kinase Index CK-MB (CK-2) Troponin I < 0.02 B-Natriuretic Peptide Total Protein Albumin TSH Free T4 1.00 Urine Color Urine Appearance Urine pH Ur Specific [place] Urine Protein Urine Glucose (UA) Urine Ketones Urine Blood Urine Nitrite Urine Bilirubin Urine Urobilinogen Ur Leukocyte Esterase Urine WBC (Auto) Urine RBC (Auto) Urine Casts (Auto) U Epithel Cells (Auto) Urine Bacteria (Auto) 05/01/19 06:05 WBC RBC Hgb Hct MCV MCH MCHC RDW Plt Count MPV Absolute Neuts (auto) Neutrophils % Neutrophils % (Manual) Band Neutrophils % Lymphocytes % Lymphocytes % (Manual) Monocytes % Monocytes % (Manual) Eosinophils % Eosinophils % (Manual) Basophils % Basophils % (Manual) Myelocytes % (Man) Promyelocytes % (Man) Blast Cells % (Manual) Nucleated RBC % Metamyelocytes Hypochromia Toxic Granulation Platelet Estimate Platelet Comment Polychromasia Poikilocytosis Anisocytosis Microcytosis Macrocytosis Ovalocytes Schistocytes PT with INR INR Sodium 140 Potassium 3.6 Chloride 106 Carbon Dioxide 29 Anion Gap 5 L BUN 10.7 Creatinine 0.8 Est GFR (CKD-EPI)AfAm 76.83 Est GFR (CKD-EPI)NonAf 66.29 Random Glucose 85 Lactic Acid Calcium 8.1 L Magnesium Total Bilirubin 0.7 AST 58 H ALT 54 Alkaline Phosphatase 109 Creatine Kinase Creatine Kinase Index CK-MB (CK-2) Troponin I B-Natriuretic Peptide Total Protein 6.7 Albumin 3.0 L TSH Free T4 Urine Color Urine Appearance Urine pH Ur Specific [place] Urine Protein Urine Glucose (UA) Urine Ketones Urine Blood Urine Nitrite Urine Bilirubin Urine Urobilinogen Ur Leukocyte Esterase Urine WBC (Auto) Urine RBC (Auto) Urine Casts (Auto) U Epithel Cells (Auto) Urine Bacteria (Auto) Active Medications Generic Name Dose Route Start Last Admin Trade Name Freq PRN Reason Stop Dose Admin Metoprolol Tartrate 12.5 mg 04/30/19 20:30 05/01/19 03:25 Lopressor - PO 12.5 mg Q6H [facility] Administration Rivaroxaban 20 mg 05/01/19 18:00 Xarelto PO DAILY@1800 [facility] ASSESSMENT/PLAN: Pateint presents with Afib with RVR (MS50 and dilt cr 180 at home) now 12.5 q6h holding dilt on IV lasix with cardio following; CHF noted on exam/imaging with known valvular issues. Rate-related vs. organic CHF; following up repeat echo, continue diuresis, and monitor on tele. Would use BB for PRN rate control if any issues overnight given BP issues described with ER course. -Afib with RVR (elevated CV2 score on xarelto, possible valvular component. MT 12.5 Q6H [on 50 MS at home] and hold dilt given CHF presentation until ascertained she can deal with an agent that impacts contractility. Titrating up the BB as needed. Defer further treatment to CV. IV BB to control HR overnight if needed.) -Possible severe valvular disease (per 2017 echo but issue with AF control; followup with CV to see if corrected on OP study. No relayed history of valvuloplasty, etc. Followup with CV.) -Fluid overload with elevated BNP (Continue with diuresis, PRN O2 via NC. Optimize Mg, K. Strict Is and Os, etc.) -Lip Swelling/Chemo rxn? (None noted; followup with heme recs) -Multiple myeloma on chemo with leukopenia/thrombocytopenia (stable; continue home xarelto but will hold if drops to specified katie, no bleeding, consulted hematology/oncology. Appreciate expert opinion in the ongoing management of this patient. Home chemotherapeutic agent noted; would be helpful to get OP records on Thursday. Baselines not known from recent past so would be helpful to ascertain said information.) -Hx HTN (stable; off diltiazem. Monitor. She isn't on antihypertensives, persay ) Dispo: Telemetry; pending diuresis, titration of rate control medication, and cardiac assessment from subspecialty services. Full Code Visit type - Emergency Visit Emergency Visit: No - New Patient This patient is new to me today: No - Critical Care Critical Care patient: No
--- NOTE | 2019-05-01 08:48 | CON.CARD ---
Consult Consult Specialty:: cardio - History of Present Illness Chief Complaint: weakness, sob History of Present Illness: 89 F here with weakness, sob. noted to be in rapid AF with HR 140-150. IV diltiazem given in ER--HR improved 80s-90s. CXR felt to show congestion--lasix IV given. sx's improved after that. bp's soft to 80s at times. states she currently feels better without sob if O2 on. dizzy this am. no chest pain/pressure at any time. seeing cardio in our office (carlo parra thinks) PMH: afib myeloma on chemo, with cytopenias - Past Medical History Cardio/Vascular: Yes: HTN - Alcohol/Substance Use Hx Alcohol Use: No - Smoking History Smoking history: Never smoked Have you smoked in the past 12 months: No Aproximately how many cigarettes per day: 0 Home Medications - Allergies Allergies/Adverse Reactions: Allergies Allergy/AdvReac Type Severity Reaction Status Date / Time lisinopril Allergy Verified 04/30/19 09:16 oxycodone HCl Allergy Verified 04/30/19 09:16 [From OxyContin] Penicillins Allergy Verified 04/30/19 09:16 - Home Medications Home Medications: Ambulatory Orders Metoprolol Succinate [Toprol XL -] 50 mg PO DAILY #30 cap 03/09/17 Rivaroxaban [Xarelto -] 20 mg PO DAILY #30 tablet 03/09/17 Acetaminophen [Tylenol .Extra-Strength -] 500 mg 04/30/19 Diltiazem Cd [Cardizem Cd -] 180 mg PO DAILY 04/30/19 Diphenhydramine HCl [Wal-Dryl] 10 mg 04/30/19 Ixazomib Citrate [Ninlaro] 2.3 mg PO 04/30/19 Family Disease History - Family Disease History Family History: Denies (no known cmp) Review of Systems - Review of Systems Constitutional: denies: Chills, Fever Eyes: denies: Eye Pain HENT: denies: Nasal Congestion Neck: denies: Stiffness Cardiovascular: denies: Palpitations Respiratory: denies: Orthopnea, PND Gastrointestinal: denies: Diarrhea, Rectal Bleeding Genitourinary: denies: Burning, Hematuria Musculoskeletal: denies: Muscle Pain Integumentary: denies: Rash Neurological: denies: Numbness, Seizure, Syncope Endocrine: denies: Excessive Sweating Hematology/Lymphatic: denies: Excessive Bleeding Vital Signs: Vital Signs Temperature 98.0 F 05/01/19 06:00 Pulse Rate 87 05/01/19 06:00 Respiratory Rate 20 05/01/19 06:00 Blood Pressure 116/80 05/01/19 06:00 O2 Sat by Pulse Oximetry (%) 95 04/30/19 22:00 Constitutional: Yes: Well Nourished, No Distress Eyes: No: Sclera Icterus HENT: No: Nasal Congestion Neck: No: Decreased ROM Respiratory: Yes: CTA Bilaterally. No: Accessory Muscle Use, Rales, Wheezes Gastrointestinal: Yes: Normal Bowel Sounds. No: Distention, Hepatomegaly, Palpable Mass, Tenderness Cardiovascular: Yes: Pulse Irregular JVD: Yes Carotid Bruit: No PMI: Non-Displaced Heart Sounds: Yes: S1, S2. No: Gallop Murmur: Yes: Systolic Murmur (brief, flat syst murmur apex). No: Diastolic Murmur Musculoskeletal: Yes: Other (No kyphosis) Extremities: No: Cold, Cool, Cyanosis Edema: No Peripheral Pulses: 2+ Left Carotid, 2+ Right Carotid, 2+ Left Doralis Pedis, 2+ Right Dorsalis Pedis Integumentary: No: Jaundice Neurological: Yes: Alert, Oriented (x3) Psychiatric: No: Agitated - Other Data Labs, Other Data: CBC, BMP 05/01/19 06:05 05/01/19 06:05 INR, PTT INR 1.32 (0.83-1.09) H 05/01/19 06:05 Troponin, BNP 04/30/19 04/30/19 10:11 19:08 Troponin I < 0.02 < 0.02 B-Natriuretic Peptide 2857.0 H Troponin, BNP 04/30/19 04/30/19 10:11 19:08 Troponin I < 0.02 < 0.02 B-Natriuretic Peptide 2857.0 H Laboratory Tests 10/26/15 04/30/19 04/30/19 10:30 10:11 19:08 WBC Hgb Plt Count Sodium Potassium Carbon Dioxide BUN Creatinine Est GFR (CKD-EPI)NonAf AST ALT B-Natriuretic Peptide 172.16 2857.0 H Troponin I < 0.02 < 0.02 Albumin TSH 4.85 H 05/01/19 05/01/19 06:05 06:05 WBC 1.8 L* Hgb 11.3 Plt Count 60 L Sodium 140 Potassium 3.6 Carbon Dioxide 29 BUN 10.7 Creatinine 0.8 Est GFR (CKD-EPI)NonAf 66.29 AST 58 H ALT 54 B-Natriuretic Peptide Troponin I Albumin 3.0 L TSH Assessment/Plan echo 02/2017 (here): low nl lvef, nl rv, mod ella, sev mr, sev tr, mild ar, mod pr, rvsp 40-50 cxr: congestive changes, small R effusion ecg 04/30: rapid AF, right QRS axis; no path q's or ST-T abn tele: AF 70s-90s a/p: 87 f hx multiple myeloma, htn, afib sob, acute CHF -initially hypoxic (87%). -BNP 2800 (signif up from prior), with CXR showing findings of mild chf (new vs 2017) -JVD to jaw -received lasix 40 iv X1 in ER yest, tolerated well -soft BPs--try lasix 40 iv bid -check echo for EF and MR/TR severity -no signs ACS AFib: -presented here 2017 with afib with rvr, likely due to poor med compliance, preserved LVEF on echo then -rate control req'd dilt and metoprolol 50 qd -soft bp's here--agree with spacing out metopr dosing (12.5 q6H) for now, while watch for hypotension with iv diuresis -HRs good--cont tele -cont xarelto 20 qd--if PLTs drop <50K will likely have to hold AC valvular dz: MR, TR -echo 2017 with severe MR/TR in setting of rapid AF, no clinical CHF then -will review recent office echo -no loud murmurs -f/u echo mult myeloma: -leukopenia, thrombocytopenia--no recent baseline values -per hospitalist, +/- heme
[2019-05-01] MEDS ORDERED: MAGNESIUM SULFATE IN WATER 2 GM/50 ML IVPB IVPB ONE (09:30)
[2019-05-01] MEDS ORDERED: FUROSEMIDE 40 MG/4 ML INJECTABLE VIAL IVPUSH SCH ×2 (10:00→10:15)
[2019-05-01] MEDS: FUROSEMIDE 40 MG/4 ML INJECTABLE VIAL IVPUSH SCH ×2 (11:33→15:45)
--- NOTE | 2019-05-01 16:56 | EKG ---
Test Reason : Blood Pressure : / mmHG Vent. Rate : 146 BPM Atrial Rate : 092 BPM P-R Int : 000 ms QRS Dur : 088 ms QT Int : 324 ms P-R-T Axes : 000 164 000 degrees QTc Int : 504 ms ATRIAL FIBRILLATION WITH RAPID VENTRICULAR RESPONSE INDETERMINATE AXIS LOW VOLTAGE QRS CANNOT RULE OUT ANTERIOR INFARCT , AGE UNDETERMINED ABNORMAL ECG WHEN COMPARED WITH ECG OF 05-MAR-2017 21:42, VENT. RATE HAS INCREASED BY 66 BPM QRS AXIS SHIFTED RIGHT MINIMAL CRITERIA FOR ANTERIOR INFARCT ARE NOW PRESENT Confirmed by MARY GUEVARA MD ([id number]) on 05/01/2019 4:56:42 PM Referred By: Confirmed By:MARY GUEVARA MD
[2019-05-01] MEDS: RIVAROXABAN 20 MG TABLET PO SCH ×2 (17:59→21:55)
--- NOTE | 2019-05-01 21:11 | CONSULT ---
Consult Consult Specialty:: heme Referred by:: Dr. Frias Reason for Consultation:: MM - History of Present Illness Chief Complaint: generalized weakness History of Present Illness: 89M with HTN, Afib on rivaroxaban, and IgG kappa myeloma) presented with sore throat, odynophagia, lip swelling and generalized weakness. Found to be in RVR and fluid overload. On diltiazem and Lasix. MM was diagnosed in 2013. Pt is followed by Dr. Osman at [facility]. She is s/p Revlimid/Vlcade (dex not tolerated) induction, then Velcade maintenance until 2015 progression, followed by revlimid maintainence (not tolerated due to diffuse rash). She has been on Ninlaro since 06/2016. Dose was recently reduced to 2.3 mg weekly due to fatigue and weakness. Has had chronic leukopenia (with mild neutropenia). Plt count in 80s since 01/2019. She was seen by Dr. Osman on 04/28 for facial and lip swelling x 1 day. Was given Benadryl. Symptoms improved. On 04/28: SPEP with IgG [place] 1.2 g (from 1.1 in 01/2019), IgG 2090 (from 2250 in ), kappa 170 (from 180 in 01/2019) with ratio ~8. Last Ninlaro on 04/24. WBC 1.8 today, diff pending. Plt 60 Pt endorses chronic LBP. Denies leg weakness/numbness, urinary/bowel incontinence. Sore throat is better. No bleeding. Pt's daughter spoke with Dr. Osman about hospitalization. - Past Medical History Cardio/Vascular: Yes: HTN - Alcohol/Substance Use Hx Alcohol Use: No - Smoking History Smoking history: Never smoked Have you smoked in the past 12 months: No Aproximately how many cigarettes per day: 0 Home Medications - Allergies Allergies/Adverse Reactions: Allergies Allergy/AdvReac Type Severity Reaction Status Date / Time lisinopril Allergy Verified 04/30/19 09:16 oxycodone HCl Allergy Verified 04/30/19 09:16 [From OxyContin] Penicillins Allergy Verified 04/30/19 09:16 - Home Medications Home Medications: Ambulatory Orders Metoprolol Succinate [Toprol XL -] 50 mg PO DAILY #30 cap 03/09/17 Rivaroxaban [Xarelto -] 20 mg PO DAILY #30 tablet 03/09/17 Acetaminophen [Tylenol .Extra-Strength -] 500 mg 04/30/19 Diltiazem Cd [Cardizem Cd -] 180 mg PO DAILY 04/30/19 Diphenhydramine HCl [Wal-Dryl] 10 mg 04/30/19 Ixazomib Citrate [Ninlaro] 2.3 mg PO 04/30/19 Review of Systems - Review of Systems Constitutional: reports: Malaise, Weakness HENT: reports: Throat Pain Cardiovascular: reports: No Symptoms Respiratory: reports: No Symptoms Gastrointestinal: reports: No Symptoms Genitourinary: reports: No Symptoms Neurological: reports: No Symptoms Hematology/Lymphatic: reports: No Symptoms Physical Exam Vital Signs: Vital Signs Temperature 98 F 05/01/19 14:00 Pulse Rate 85 05/01/19 14:00 Respiratory Rate 20 05/01/19 14:00 Blood Pressure 95/53 L 05/01/19 14:00 O2 Sat by Pulse Oximetry (%) 96 05/01/19 09:00 Constitutional: Yes: Well Nourished, No Distress Eyes: Yes: Conjunctiva Clear HENT: No: Pharyngeal Erythema Neck: No: Lymphadenopathy Cardiovascular: Yes: Regular Rate and Rhythm Respiratory: Yes: Regular, CTA Bilaterally Gastrointestinal: Yes: Soft. No: Distention, Tenderness Extremities: Yes: WNL Edema: No Neurological: Yes: WNL, Alert. No: Numbness, Paresthesia ...Motor Strength: WNL Labs: CBC, BMP 05/01/19 06:05 05/01/19 06:05 Assessment/Plan 89F with IgG kappa myeloma, on Ninlaro, with stable disease on 04/28 labs. Unclear whether facial/lip swelling was related to Ninlaro. It can cause peripheral edema and cytopenias. Hold Ninlaro. Continue to monitor CBC. 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
[2019-05-01] MEDS ORDERED: METOPROLOL TARTRATE 5 MG/5 ML VIAL IVPUSH ONE (23:40)
[2019-05-02] MEDS: METOPROLOL TARTRATE 25 MG TABLET (FP) PO SCH (02:07)
[2019-05-02] MEDS: FUROSEMIDE 40 MG/4 ML INJECTABLE VIAL IVPUSH SCH ×2 (06:25→14:11)
[2019-05-02 06:47] LABS: BASO % 0.2 % (0-2.0); EOS % 1.2 % (0-4.5); HEMATOCRIT 37.1 % (32.4-45.2); HEMOGLOBIN 12.2 GM/dL (10.7-15.3); LYMPH % 38.1 % (8-40); MCHC 32.8 g/dl (32.0-36.0); MEAN CELL VOLUME 94.6 fl (80-96); MONO % 14.4 % (3.8-10.2); NEUT % 46.1 % (42.8-82.8); PLATELET COUNT 64 K/MM3 (134-434); RBC 3.92 M/mm3 (3.60-5.2); RDW 18.1 % (11.6-15.6); WHITE BLOOD COUNT 2.2 K/mm3 (4.0-10.0)
[2019-05-02 07:07] LABS: ALBUMIN 3.1 g/dl (3.4-5.0); BILIRUBIN,TOTAL 0.8 mg/dL (0.2-1); BLOOD UREA NITROGEN 13.9 mg/dL (7-18); CALCIUM 8.5 mg/dL (8.5-10.1); CREATININE 0.8 mg/dL (0.55-1.3); MAGNESIUM 2.1 mg/dL (1.8-2.4); POTASSIUM 3.2 mmol/L (3.5-5.1); TOT PROT 7.2 g/dl (6.4-8.2)
[2019-05-02] MEDS ORDERED: POTASSIUM CHLORIDE ORAL LIQUID 20 MEQ/15 ML PO ONE (10:18)
--- NOTE | 2019-05-02 10:19 | PN ---
Progress Note, Physician Chief Complaint: sob History of Present Illness: less sob no cp, palpit, syncope - Current Medication List Current Medications: Active Medications Furosemide (Lasix Injection -) 40 mg IVPUSH BID@0600,1400 [facility] Last Admin: 05/02/19 06:25 Dose: 40 mg Metoprolol Tartrate (Lopressor -) 12.5 mg PO Q6H [facility] Last Admin: 05/02/19 02:07 Dose: 12.5 mg Rivaroxaban (Xarelto) 20 mg PO DAILY@1800 [facility] Last Admin: 05/01/19 21:55 Dose: 20 mg - Objective Vital Signs: Vital Signs Temperature 98.7 F 05/02/19 09:00 Pulse Rate 95 H 05/02/19 09:00 Respiratory Rate 20 05/02/19 09:00 Blood Pressure 95/54 L 05/02/19 09:00 O2 Sat by Pulse Oximetry (%) 95 05/02/19 09:00 Constitutional: Yes: Well Nourished, No Distress, Calm Cardiovascular: Yes: Pulse Irregular, JVD, S1, S2. No: Gallop, Murmur Respiratory: Yes: Regular, CTA Bilaterally. No: Accessory Muscle Use, Rales, Rhonchi, Wheezes Extremities: No: Cold Edema: No Neurological: Yes: Alert, Oriented Psychiatric: No: Agitated Labs: CBC, BMP 05/02/19 05:55 05/02/19 06:07 INR, PTT INR 1.32 (0.83-1.09) H 05/01/19 06:05 Assessment/Plan echo 02/2017 (here): low nl lvef, nl rv, mod ella, sev mr, sev tr, mild ar, mod pr, rvsp 40-50 echo 2018 (office): preserved LVEF. mod MR/TR cxr: congestive changes, small R effusion ecg 04/30: rapid AF, right QRS axis; no path q's or ST-T abn tele: AF mostly controlled HR, frequently jumps briefly to 120s-140 a/p: 87 f hx multiple myeloma, htn, afib sob, acute CHF -initially hypoxic (87%). -BNP 2800 (signif up from prior), with CXR showing findings of mild chf (new vs 2017) -JVD to jaw -receiving lasix 40 iv bid, wt coming down. labs stable, bp tolerating. remains with marked JVD--same dose today -repeat echo for EF and MR/TR severity -no signs ACS AFib: -presented here 2017 with afib with rvr, likely due to poor med compliance, preserved LVEF on echo then -on diltiazem 180 and and metoprolol 50 qd at home -soft bp's here, HRs remain frequently rapid (briefly)--change lopressor 12.5 q6H to toprol 25 bid. add digoxin 0.125 qod--monitor level -HRs good--cont tele -cont xarelto 20 qd--if PLTs drop <50K will likely have to hold AC valvular dz: MR, TR -echo 2017 with severe MR/TR in setting of rapid AF, no clinical CHF then -will review recent office echo -no loud murmurs -f/u echo mult myeloma: -leukopenia, thrombocytopenia--no recent baseline values -per hospitalist, +/- heme
[2019-05-02] MEDS: metoPROLOL SUCCINATE 25 MG TAB.SR.24H (FP) PO SCH ×2 (11:18→22:12)
[2019-05-02] MEDS: DIGOXIN 0.125 MG TABLET (FP) PO SCH (11:18)
--- NOTE | 2019-05-02 12:58 | ECHO ---
Name: JUAN CONKLIN Exam:Adult Echocardiogram Study Date: 05/02/2019 09:05 AM Age: 89 yrs Reason For Study: new onset chf Height: 63 in Weight: 132 lb BSA: 1.6 m2 MMode/2D Measurements & Calculations IVSd: 0.97 cm Ao root diam: 3.0 cm LVIDd: 4.1 cm LA dimension: 2.5 cm LVIDs: 2.8 cm ACS: 1.9 cm LVPWd: 0.92 cm IVSs: 1.3 cm LVPWs: 1.1 cm EDV(Teich): 76.4 ml ESV(Teich): 28.7 ml Doppler Measurements & Calculations MV E max ramy: 51.0 cm/sec Ao V2 max: 107.0 cm/sec Ao max P.6 mmHg Ao V2 mean: 74.1 cm/sec Ao mean P.5 mmHg Ao V2 VTI: 16.6 cm AI P1/2t: 988.9 msec AI max ramy: 369.0 cm/sec MR max ramy: 444.8 cm/sec AI max P.5 mmHg MR max P.1 mmHg AI dec slope: 109.3 cm/sec2 TR max ramy: 292.7 cm/sec PI end-d ramy: 161.5 cm/sec TR max P.0 mmHg Med Peak E' Ramy: 7.5 cm/sec Med E/e': 6.8 Lat Peak E' Ramy: 10.1 cm/sec Lat E/e': 5.1 Procedure A complete two-dimensional transthoracic echocardiogram was performed (2D, M-mode, Doppler and color flow Doppler). Left Ventricle The left ventricle is normal in size. Left ventricular systolic function is normal. Ejection Fraction = 60- 65%. No regional wall motion abnormalities noted. Right Ventricle The right ventricle is normal size. The right ventricular systolic function is normal. Atria The left atrial size is normal. LA volume index is 33 ml/m2. The right atrium is mild to moderately d ilated. Mitral Valve There is mild mitral annular calcification. There is mild to moderate mitral regurgitation. Tricuspid Valve The tricuspid valve is normal in structure and function. There is moderate tricuspid regurgitation. P ulmonary artery systolic pressure is at least 49 mmHg is RA pressure is assumed 3 mmHg. Aortic Valve There is mild aortic sclerosis.;. Mild to moderate aortic regurgitation. Pulmonic Valve The pulmonic valve is not well visualized. Mild to moderate pulmonic valvular regurgitation. Great Vessels The aortic root is normal size. Pericardium/Pleura There is no pericardial effusion. Interpretation Summary The left ventricle is normal in size. Left ventricular systolic function is normal. No regional wall motion abnormalities noted. Ejection Fraction = 60-65%. The right ventricular systolic function is normal. The left atrial size is normal. The right atrium is mild to moderately dilated. There is mild mitral annular calcification. There is mild to moderate mitral regurgitation. There is moderate tricuspid regurgitation. Pulmonary artery systolic pressure is at least 49 mmHg is RA pressure is assumed 3 mmHg There is mild aortic sclerosis. Mild to moderate aortic regurgitation. Mild to moderate pulmonic valvular regurgitation. There is no pericardial effusion. Previous study is not available for comparison Gus Quintanilla MD 05/02/2019 12:58 PM
--- NOTE | 2019-05-02 15:21 | PN ---
Physical Exam: SUBJECTIVE: Patient seen and examined at bedside. No complaints. Feels well. OBJECTIVE: Vital Signs Period Temp Pulse Resp BP Sys/Duarte Pulse Ox Last 24 Hr 97.6 F-98.7 F 86-96 20-20 95-128/50-89 95-95 Gen: NAD, AAOx3 HEENT: NCAT, EOMI Neck: supple, no jvd Cardio irreg, normal s1s2, no mrg Pulm: cta b/l Abd: soft, nontender Ext: no edema Laboratory Results - last 24 hr 05/02/19 05/02/19 05:55 06:07 WBC 2.2 L RBC 3.92 Hgb 12.2 Hct 37.1 MCV 94.6 MCH 31.0 MCHC 32.8 RDW 18.1 H Plt Count 64 L MPV 10.0 Absolute Neuts (auto) 1.0 L Neutrophils % 46.1 D Lymphocytes % 38.1 D Monocytes % 14.4 H Eosinophils % 1.2 D Basophils % 0.2 Nucleated RBC % 0 Sodium 138 Potassium 3.2 L Chloride 102 Carbon Dioxide 29 Anion Gap 7 L BUN 13.9 Creatinine 0.8 Est GFR (CKD-EPI)AfAm 76.83 Est GFR (CKD-EPI)NonAf 66.29 Random Glucose 79 Calcium 8.5 Magnesium 2.1 Total Bilirubin 0.8 AST 63 H ALT 54 Alkaline Phosphatase 113 Total Protein 7.2 Albumin 3.1 L Active Medications Generic Name Dose Route Start Last Admin Trade Name Freq PRN Reason Stop Dose Admin Digoxin 0.125 mg 05/02/19 10:30 05/02/19 11:18 Lanoxin - PO 0.125 mg Q48H ANANT Administration Furosemide 40 mg 05/01/19 10:04 05/02/19 14:11 Lasix Injection - IVPUSH 40 mg BID@0600,1400 ANANT Administration Metoprolol Succinate 25 mg 05/02/19 10:30 05/02/19 11:18 Toprol Xl - PO 25 mg BID ANANT Administration Rivaroxaban 20 mg 05/01/19 18:00 05/01/19 21:55 Xarelto PO 20 mg DAILY@1800 ANANT Administration ASSESSMENT/PLAN: 89 y/o F with PMH Afib with RVR ,CHF noted on exam/imaging with known valvular issues. Rate-related vs. organic CHF; following up repeat echo, continue diuresis, and monitor on tele. Would use BB for PRN rate control if any issues overnight given BP issues described with ER course. #Afib with RVR -asymptomatic at this time -xarelto -Toprol increased to 25 -Digoxin added -Cardio on board #Possible severe valvular disease -per cardio: echo 2017 with severe MR/TR in setting of rapid AF, no clinical CHF then -repeat echo without overt severe disease: mild mitral annular calcification, mild to moderate MR, moderate TR, mild Ao sclerosis, mild to moderate AR, mild to moderate pulm regurg, EF 60% -cardio on board #Fluid overload with elevated BNP -Clinically improving -Lasix -O2 to maintain sat > 88% -I&O -daily weights #Lip Swelling/Chemo rxn? -Noted by Heme/Onc -? drug reaction -monitor #IgG [place] Multiple myeloma -Heme/Onc on board -Pt takes Ninlaro (held for possible drug reaction as noted above) #Hx HTN -stable -off diltiazem Visit type - Emergency Visit Emergency Visit: No - New Patient This patient is new to me today: Yes Date on this admission: 05/02/19 - Critical Care Critical Care patient: No ATTENDING PHYSICIAN STATEMENT I saw and evaluated the patient. I reviewed the resident's note and discussed the case with the resident. I agree with the resident's findings and plan as documented. SUBJECTIVE: OBJECTIVE: ASSESSMENT AND PLAN:
[2019-05-02] MEDS: RIVAROXABAN 20 MG TABLET PO SCH (17:18)
--- NOTE | 2019-05-02 18:18 | PN ---
Progress Note (short form) - Note Progress Note: 89 lady with HTN, Afib on rivaroxaban, and IgG kappa myeloma) presented with sore throat, odynophagia, lip swelling and generalized weakness. Found to be in RVR and fluid overload. On diltiazem and Lasix. MM was diagnosed in 2013. Pt is followed by Dr. Osman at [facility]. She is s/p Revlimid/Velcade (dex not tolerated) induction, then Velcade maintenance until 10/2015 progression, followed by revlimid maintainence (not tolerated due to diffuse rash). She has been on Ninlaro since 06/2016. Dose was recently reduced to 2.3 mg weekly due to fatigue and weakness. Has had chronic leukopenia (with mild neutropenia). Plt count in 80s since 01/2019. She was seen by Dr. Osman on 04/28 for facial and lip swelling x 1 day. Was given Benadryl. Symptoms improved. On 04/28: SPEP with IgG [place] 1.2 g (from 1.1 in 01/2019), IgG 2090 (from 2250 in 01/2019), kappa 170 (from 180 in 01/2019) with ratio ~8. Last Ninlaro on 04/24. Visit 05/02/19: Doing well, feels much better. Having dinner with daughter. Lip swelling markedly improved ROS: 14 point elicited and negative or as per above Last Vital Signs Temp Pulse Resp BP Pulse Ox 97.8 F 106 H 20 104/70 95 05/02/19 14:00 05/02/19 14:00 05/02/19 09:00 05/02/19 14:00 05/02/19 09:00 Physical Exam General: NAD HEENT: Lower lip edema resolving CVS: S1,S2. 1-2/6 [place] Lungs: CTAB Abdomen: Soft, NT, ND Extremities: No edema Neuro: Moves all extremities Skin: No overt rash Current Medications Generic Name Dose Route Start Last Admin Trade Name Freq PRN Reason Stop Dose Admin Digoxin 0.125 mg 05/02/19 10:30 05/02/19 11:18 Lanoxin - PO 0.125 mg Q48H ANANT Administration Furosemide 40 mg 05/01/19 10:04 05/02/19 14:11 Lasix Injection - IVPUSH 40 mg BID@0600,1400 ANANT Administration Metoprolol Succinate 25 mg 05/02/19 10:30 05/02/19 11:18 Toprol Xl - PO 25 mg BID ANANT Administration Rivaroxaban 20 mg 05/01/19 18:00 05/02/19 17:18 Xarelto PO 20 mg DAILY@1800 ANANT Administration Valacyclovir HCl 1,000 mg 05/02/19 22:00 Valtrex - PO BID [facility] Laboratory Last Values WBC 2.2 K/mm3 (4.0-10.0) L 05/02/19 05:55 RBC 3.92 M/mm3 (3.60-5.2) 05/02/19 05:55 Hgb 12.2 GM/dL (10.7-15.3) 05/02/19 05:55 Hct 37.1 % (32.4-45.2) 05/02/19 05:55 MCV 94.6 fl (80-96) 05/02/19 05:55 MCH 31.0 pg (25.7-33.7) 05/02/19 05:55 MCHC 32.8 g/dl (32.0-36.0) 05/02/19 05:55 RDW 18.1 % (11.6-15.6) H 05/02/19 05:55 Plt Count 64 K/MM3 (134-434) L 05/02/19 05:55 MPV 10.0 fl (7.5-11.1) 05/02/19 05:55 Absolute Neuts (auto) 1.0 K/mm3 (1.5-8.0) L 05/02/19 05:55 Neutrophils % 46.1 % (42.8-82.8) D 05/02/19 05:55 Neutrophils % (Manual) 65.6 % (42.8-82.8) 04/30/19 10:11 Band Neutrophils % 7.3 % 04/30/19 10:11 Lymphocytes % 38.1 % (8-40) D 05/02/19 05:55 Lymphocytes % (Manual) 16.7 % (8-40) 04/30/19 10:11 Monocytes % 14.4 % (3.8-10.2) H 05/02/19 05:55 Monocytes % (Manual) 10 % (3.8-10.2) 04/30/19 10:11 Eosinophils % 1.2 % (0-4.5) D 05/02/19 05:55 Eosinophils % (Manual) 0.0 % (0-4.5) 04/30/19 10:11 Basophils % 0.2 % (0-2.0) 05/02/19 05:55 Basophils % (Manual) 0.0 % (0-2.0) 04/30/19 10:11 Myelocytes % (Man) 0 % (0-2) 04/30/19 10:11 Promyelocytes % (Man) 0 % (0-2) 04/30/19 10:11 Blast Cells % (Manual) 0 % (0-0) 04/30/19 10:11 Nucleated RBC % 0 % (0-0) 05/02/19 05:55 Metamyelocytes 0 % (0-2) 04/30/19 10:11 Hypochromia 0 04/30/19 10:11 Toxic Granulation 1+ 04/30/19 10:11 Platelet Estimate Decreased 04/30/19 10:11 Platelet Comment No clumping noted 04/30/19 10:11 Polychromasia 0 04/30/19 10:11 Poikilocytosis 1+ 04/30/19 10:11 Anisocytosis 0 04/30/19 10:11 Microcytosis 0 04/30/19 10:11 Macrocytosis 1+ 04/30/19 10:11 Ovalocytes 1+ 04/30/19 10:11 Schistocytes 1+ 04/30/19 10:11 PT with INR 15.60 SEC (9.7-13.0) H 05/01/19 06:05 INR 1.32 (0.83-1.09) H 05/01/19 06:05 Sodium 138 mmol/L (136-145) 05/02/19 06:07 Potassium 3.2 mmol/L (3.5-5.1) L 05/02/19 06:07 Chloride 102 mmol/L (98-107) 05/02/19 06:07 Carbon Dioxide 29 mmol/L (21-32) 05/02/19 06:07 Anion Gap 7 MMOL/L (8-16) L 05/02/19 06:07 BUN 13.9 mg/dL (7-18) 05/02/19 06:07 Creatinine 0.8 mg/dL (0.55-1.3) 05/02/19 06:07 Est GFR (CKD-EPI)AfAm 76.83 05/02/19 06:07 Est GFR (CKD-EPI)NonAf 66.29 05/02/19 06:07 Random Glucose 79 mg/dL (74-106) 05/02/19 06:07 Lactic Acid 1.8 mmol/L (0.4-2.0) 04/30/19 10:11 Calcium 8.5 mg/dL (8.5-10.1) 05/02/19 06:07 Magnesium 2.1 mg/dL (1.8-2.4) 05/02/19 06:07 Total Bilirubin 0.8 mg/dL (0.2-1) 05/02/19 06:07 AST 63 U/L (15-37) H 05/02/19 06:07 ALT 54 U/L (13-61) 05/02/19 06:07 Alkaline Phosphatase 113 U/L (45-117) 05/02/19 06:07 Creatine Kinase 103 U/L (26-192) 04/30/19 19:08 Creatine Kinase Index 0.5 % (0.0-5.0) 04/30/19 10:11 CK-MB (CK-2) 1.3 ng/mL (0.5-3.6) 04/30/19 10:11 Troponin I < 0.02 ng/ml (0.00-0.05) 04/30/19 19:08 B-Natriuretic Peptide 2857.0 pg/ml (5-450) H 04/30/19 10:11 Total Protein 7.2 g/dl (6.4-8.2) 05/02/19 06:07 Albumin 3.1 g/dl (3.4-5.0) L 05/02/19 06:07 TSH 4.85 uIU/ml (0.358-3.74) H 04/30/19 10:11 Free T4 1.00 ng/dl (0.76-1.46) 04/30/19 19:08 Urine Color Yellow 04/30/19 10:50 Urine Appearance Clear 04/30/19 10:50 Urine pH 5.5 (5.0-8.0) 04/30/19 10:50 Ur Specific [place] 1.020 (1.010-1.035) 04/30/19 10:50 Urine Protein 1+ (NEGATIVE) H 04/30/19 10:50 Urine Glucose (UA) Negative (NEGATIVE) 04/30/19 10:50 Urine Ketones Negative (NEGATIVE) 04/30/19 10:50 Urine Blood Trace-intact (NEGATIVE) 04/30/19 10:50 Urine Nitrite Negative (NEGATIVE) 04/30/19 10:50 Urine Bilirubin Negative (NEGATIVE) 04/30/19 10:50 Urine Urobilinogen 0.2 mg/dL (0.2-1.0) 04/30/19 10:50 Ur Leukocyte Esterase Negative (NEGATIVE) 04/30/19 10:50 Urine WBC (Auto) 0.8 /hpf (0-5) 04/30/19 10:50 Urine RBC (Auto) 1.2 /hpf (0-4) 04/30/19 10:50 Urine Casts (Auto) 2.61 /lpf (0-8) 04/30/19 10:50 U Epithel Cells (Auto) 2.9 /HPF (0-5/HPF) 04/30/19 10:50 Urine Bacteria (Auto) 9.1 /hpf (NEGATIVE) 04/30/19 10:50 Group A Strep Rapid Negative (Negative) 05/01/19 13:00 Assessment and Plan: 89 lady with IgG kappa myeloma, on Ninlaro, with stable disease on 04/28 labs. Plan: 1) Unclear whether facial/lip swelling was related to Ninlaro as it can cause peripheral edema and cytopenias. OK to hold Ninlaro for now. She will follow-up with Dr. Osman outpatient 2) Start Valtrex for HSV ppx 3) Cytopenias improving. WBC 2.2 ANC 1.0. Platelets 64,000.
--- NOTE | 2019-05-02 19:02 | PN ---
Teaching Attending Note Name of Resident: Balbir Estrada ATTENDING PHYSICIAN STATEMENT I saw and evaluated the patient. I reviewed the resident's note and discussed the case with the resident. I agree with the resident's findings and plan as documented. SUBJECTIVE: Seen and examined; no events noted overnight. Still tachy on tele this AM; CV to see. Apprecate expert consult. Please see resident note for further discussion VS, labs, imaging reviewed NAD, AAO, resting in bed Irregular HR, tachy, no mew murmur Lungs CTAB, w/ sym exp NT ND +BS CN2-12 wnl, no fnd Normal mood,appropriate behavior Echo reviewed; valvular disease improved compared to prior imaging with mild/ mod valvular HD noted, no wmas, +GAGAN noted. Normal LVEF. ASSESSMENT AND PLAN: Patient presents with AF with RVR and fluid overload. Stable; adjusting antiarrhythmics and FU with CV # Afib with RVR (MT 25 BID and dig 0.125 EOD w/o load per CV; given high HR with any ambulation consider repeat dig dose but note CKD. Monitor levels and montor HR on tele) # Fluid overload (rate related CHF likely given normal LVEF; on diuresis. Today I weaned her off O2 and she was 94% on RA after ambulation. Holding off on O2 and monitoring. Diuresis per CV # Multiple Myeloma (per onc; nonacute; noted)
[2019-05-02] MEDS: valACYclovir HCL 500 MG TABLET (FP) PO SCH (22:12)
[2019-05-03] MEDS: FUROSEMIDE 40 MG/4 ML INJECTABLE VIAL IVPUSH SCH (06:31)
[2019-05-03 06:55] LABS: BASO % 0.3 % (0-2.0); EOS % 1.7 % (0-4.5); HEMATOCRIT 39.6 % (32.4-45.2); LYMPH % 41.7 % (8-40); MCH 30.9 pg (25.7-33.7); MCHC 32.8 g/dl (32.0-36.0); MEAN PLT VOLUME 9.9 fl (7.5-11.1); MONO % 14.3 % (3.8-10.2); PLATELET COUNT 72 K/MM3 (134-434); RBC 4.21 M/mm3 (3.60-5.2); RDW 18.4 % (11.6-15.6); WHITE BLOOD COUNT 2.2 K/mm3 (4.0-10.0)
[2019-05-03 07:21] LABS: ALBUMIN 3.3 g/dl (3.4-5.0); BILIRUBIN,TOTAL 1.3 mg/dL (0.2-1); BLOOD UREA NITROGEN 18.4 mg/dL (7-18); CALCIUM 8.7 mg/dL (8.5-10.1); CREATININE 0.9 mg/dL (0.55-1.3); POTASSIUM 3.5 mmol/L (3.5-5.1); TOT PROT 7.6 g/dl (6.4-8.2)
--- NOTE | 2019-05-03 08:32 | PN ---
Teaching Attending Note Name of Resident: Balbir Estrada ATTENDING PHYSICIAN STATEMENT I saw and evaluated the patient. I reviewed the resident's note and discussed the case with the resident. I agree with the resident's findings and plan as documented. Seen and examind; please refer to resident note for further historical informaiton. Briefly, no events reported overnight but sari review reveals runs of SVT to the 160s; she ambulated this AM and HR noted to increase to 160 and return to 110s with rest. She was asx with stable BP. CV recs noted. VS, labs, imaging reviewed NAD, AAO, resting in bed Irregular HR, tachy, no mew murmur Lungs CTAB, w/ sym exp NT ND +BS CN2-12 wnl, no fnd Normal mood,appropriate behavior Echo reviewed; valvular disease improved compared to prior imaging with mild/ mod valvular HD noted, no wmas, +GAGAN noted. Normal LVEF. ASSESSMENT AND PLAN: Patient presents with AF with RVR and fluid overload. Stable; adjusting antiarrhythmics and FU with CV # Afib with RVR (MT 25 BID and dig 0.125 EOD w/o load per CV; given high HR with any ambulation consider repeat dig dose but note CKD. Monitor levels and montor HR on tele) # Fluid overload (rate related CHF likely given normal LVEF; on diuresis. Today I weaned her off O2 and she was 94% on RA after ambulation. Holding off on O2 and monitoring. Diuresis per CV # Multiple Myeloma (per onc; nonacute; noted)
[2019-05-03] MEDS ORDERED: DIGOXIN 0.25 MG TABLET (FP) PO ONE (09:02)
[2019-05-03] MEDS: valACYclovir HCL 500 MG TABLET (FP) PO SCH ×2 (11:00→21:53)
--- NOTE | 2019-05-03 11:17 | PN ---
Progress Note (short form) - Note Progress Note: s: SOB improving. no chest pain, palps. HR 150s this morning while washing, may have felt dizzy Current Medications Digoxin (Lanoxin -) 0.125 mg PO Q48H [facility] Last Admin: 05/02/19 11:18 Dose: 0.125 mg Furosemide (Lasix Injection -) 40 mg IVPUSH DAILY [facility] Metoprolol Succinate (Toprol Xl -) 25 mg PO BID [facility] Last Admin: 05/02/19 22:12 Dose: 25 mg Rivaroxaban (Xarelto) 20 mg PO DAILY@1800 [facility] Last Admin: 05/02/19 17:18 Dose: 20 mg Valacyclovir HCl (Valtrex -) 1,000 mg PO BID [facility] Last Admin: 05/02/19 22:12 Dose: 1,000 mg Vital Signs Period Temp Pulse Resp BP Sys/Duarte Pulse Ox Last 24 Hr 97.7 F-98.7 F 51-160 18-20 91-120/54-71 100-100 Constitutional: Yes: Well Nourished, No Distress, Calm Cardiovascular: Yes: Pulse Irregular, + JVD, S1, S2. No: Gallop, Murmur Respiratory: Yes: Regular, CTA Bilaterally. No: Accessory Muscle Use, Rales, Rhonchi, Wheezes Extremities: No: Cold Edema: No Neurological: Yes: Alert, Oriented Psychiatric: No: Agitated Assessment/Plan echo 02/2017 (here): low nl lvef, nl rv, mod ella, sev mr, sev tr, mild ar, mod pr, rvsp 40-50 echo 2018 (office): preserved LVEF. mod MR/TR echo 04/2019 nl LV/RV function, mild to mod dilated RA, mod MR, mod TR, PASP at least 49 mmHg, mild to mod AR cxr: congestive changes, small R effusion ecg 04/30: rapid AF, right QRS axis; no path q's or ST-T abn tele: AF mostly controlled HR, episode of RVR 160s this AM a/p: 87 f hx multiple myeloma, htn, afib sob, acute CHF -initially hypoxic (87%). -BNP 2800 (signif up from prior), with CXR showing findings of mild chf (new vs 2017) -receiving lasix 40 iv bid, wt coming down. labs stable. Still has JVD however low BPs this AM, will change to lasix 40 mg IV daily - nl LV function on echo with mod MR, mild to mod AR -no signs ACS AFib: -presented here 2017 with afib with rvr, likely due to poor med compliance, preserved LVEF on echo then -on diltiazem 180 and and metoprolol 50 qd at home -soft bp's here, HRs remain frequently rapid (briefly)--changed lopressor 12.5 q6H to toprol 25 bid. - added digoxin 0.125 mg QOD - additional dose this AM for rapid rate, digoxin level pending, monitor HR -cont xarelto 20 qd--if PLTs drop <50K will likely have to hold AC valvular dz: MR, TR -echo 2017 with severe MR/TR in setting of rapid AF, no clinical CHF then -will review recent office echo -no loud murmurs - mild to mod AR and mod MR on echo here, nl EF mult myeloma: -leukopenia, thrombocytopenia--no recent baseline values -per hospitalist, +/- heme
[2019-05-03] MEDS: metoPROLOL SUCCINATE 25 MG TAB.SR.24H (FP) PO SCH ×2 (11:44→21:53)
--- NOTE | 2019-05-03 16:40 | PN ---
Physical Exam: SUBJECTIVE: Patient seen and examined at bedside. Pt was very tachycardic after getting up to go to the restroom. Cardio was called and agreed with one time Digoxin dose and holding lasix. Pt admits to mild dizziness, but otherwise feels well. OBJECTIVE: Vital Signs Period Temp Pulse Resp BP Sys/Duarte Pulse Ox Last 24 Hr 97.7 F-98.7 F 51-160 18-20 91-120/50-71 100-100 Gen: NAD, AAOx3 HEENT: NCAT, EOMI Neck: supple, no jvd Cardio irreg, normal s1s2, no mrg Pulm: cta b/l Abd: soft, nontender Ext: no edema Laboratory Results - last 24 hr 05/03/19 05/03/19 06:15 06:15 WBC 2.2 L RBC 4.21 Hgb 13.0 Hct 39.6 MCV 94.0 MCH 30.9 MCHC 32.8 RDW 18.4 H Plt Count 72 L MPV 9.9 Absolute Neuts (auto) 0.9 L Neutrophils % 42.0 L Lymphocytes % 41.7 H Monocytes % 14.3 H Eosinophils % 1.7 Basophils % 0.3 Nucleated RBC % 0 Sodium 142 Potassium 3.5 Chloride 100 Carbon Dioxide 31 Anion Gap 11 BUN 18.4 H Creatinine 0.9 Est GFR (CKD-EPI)AfAm 66.63 Est GFR (CKD-EPI)NonAf 57.49 Random Glucose 91 Calcium 8.7 Total Bilirubin 1.3 H AST 63 H ALT 52 Alkaline Phosphatase 122 H Total Protein 7.6 Albumin 3.3 L Active Medications Generic Name Dose Route Start Last Admin Trade Name Freq PRN Reason Stop Dose Admin Digoxin 0.125 mg 05/02/19 10:30 05/02/19 11:18 Lanoxin - PO 0.125 mg Q48H ANANT Administration Furosemide 40 mg 05/04/19 10:00 Lasix Injection - IVPUSH DAILY ANANT Metoprolol Succinate 25 mg 05/02/19 10:30 05/03/19 11:44 Toprol Xl - PO 25 mg BID ANANT Administration Rivaroxaban 20 mg 05/01/19 18:00 05/02/19 17:18 Xarelto PO 20 mg DAILY@1800 ANANT Administration Valacyclovir HCl 1,000 mg 05/02/19 22:00 05/03/19 11:00 Valtrex - PO 1,000 mg BID ANANT Administration ASSESSMENT/PLAN: 89 y/o F with PMH Afib with RVR ,CHF noted on exam/imaging with known valvular issues. Rate-related vs. organic CHF; following up repeat echo, continue diuresis, and monitor on tele. Would use BB for PRN rate control if any issues overnight given BP issues described with ER course. #Afib with RVR -asymptomatic at this time -xarelto -Toprol increased to 25 -Digoxin -Cardio on board #Possible severe valvular disease -repeat echo without overt severe disease: mild mitral annular calcification, mild to moderate MR, moderate TR, mild Ao sclerosis, mild to moderate AR, mild to moderate pulm regurg, EF 60% -cardio on board #Fluid overload with elevated BNP -Clinically improving -Lasix -O2 to maintain sat > 88% -I&O -daily weights #Lip Swelling/Chemo rxn? -Noted by Heme/Onc -? drug reaction -monitor -Valtrex started empircally #IgG [place] Multiple myeloma -Heme/Onc on board -Pt takes Ninlaro (held for possible drug reaction as noted above) #Hx HTN -stable -off diltiazem Visit type - Emergency Visit Emergency Visit: No - New Patient This patient is new to me today: No - Critical Care Critical Care patient: No ATTENDING PHYSICIAN STATEMENT I saw and evaluated the patient. I reviewed the resident's note and discussed the case with the resident. I agree with the resident's findings and plan as documented. SUBJECTIVE: OBJECTIVE: ASSESSMENT AND PLAN:
[2019-05-03] MEDS: RIVAROXABAN 20 MG TABLET PO SCH (17:04)
--- NOTE | 2019-05-04 09:11 | PN ---
Teaching Attending Note Name of Resident: Balbir Estrada ATTENDING PHYSICIAN STATEMENT I saw and evaluated the patient. I reviewed the resident's note and discussed the case with the resident. I agree with the resident's findings and plan as documented with exceptions below. SUBJECTIVE: Patient seen and examined. Intermittent dizziness/palpitations, more with activity, currently feeling better. No pain or complaints otherwise. OBJECTIVE: Vital Signs Period Temp Pulse Resp BP Sys/Duarte Pulse Ox Last 24 Hr 97.7 F-98.6 F 78-160 18-18 95-118/50-75 99-100 Intake & Output 05/01/19 05/02/19 05/03/19 05/04/19 23:59 23:59 23:59 23:59 Intake Total 240 694 690 250 Balance 240 694 690 250 Weight 132 lb 3.2 oz 127 lb 9.6 oz 124 lb 12.8 oz 125 lb general: sitting in bed in no acute distress neck: pos JVD, neck vein distension Chest: no rales or wheezing appreciated, pos air entry bilaterally Abdomen:Soft, NT, ND Extremities: no edema Home Medications Medication Instructions Recorded Metoprolol Succinate [Toprol XL -] 50 mg PO DAILY #30 cap 03/09/17 Rivaroxaban [Xarelto -] 20 mg PO DAILY #30 tablet 03/09/17 Acetaminophen [Tylenol 500 mg 04/30/19 .Extra-Strength -] Diltiazem Cd [Cardizem Cd -] 180 mg PO DAILY 04/30/19 Diphenhydramine HCl [Wal-Dryl] 10 mg 04/30/19 Ixazomib Citrate [Ninlaro] 2.3 mg PO 04/30/19 Active Medications Digoxin (Lanoxin -) 0.125 mg PO Q48H [facility] Last Admin: 05/02/19 11:18 Dose: 0.125 mg Furosemide (Lasix Injection -) 40 mg IVPUSH DAILY [facility] Metoprolol Succinate (Toprol Xl -) 25 mg PO BID [facility] Last Admin: 05/03/19 21:53 Dose: 25 mg Rivaroxaban (Xarelto) 20 mg PO DAILY@1800 [facility] Last Admin: 05/03/19 17:04 Dose: 20 mg Valacyclovir HCl (Valtrex -) 1,000 mg PO BID [facility] Last Admin: 05/03/19 21:53 Dose: 1,000 mg Laboratory Results - last 24 hr 04/30/19 05/03/19 05/03/19 20:25 06:15 18:20 WBC 2.2 L RBC 4.21 Hgb 13.0 Hct 39.6 MCV 94.0 MCH 30.9 MCHC 32.8 RDW 18.4 H Plt Count 72 L MPV 9.9 Absolute Neuts (auto) 0.9 L Neutrophils % 42.0 L Lymphocytes % 41.7 H Monocytes % 14.3 H Eosinophils % 1.7 Basophils % 0.3 Nucleated RBC % 0 Direct Bilirubin 0.3 H Digoxin Hep C Ab Diagnostic <0.1 05/04/19 05:50 WBC RBC Hgb Hct MCV MCH MCHC RDW Plt Count MPV Absolute Neuts (auto) Neutrophils % Lymphocytes % Monocytes % Eosinophils % Basophils % Nucleated RBC % Direct Bilirubin Digoxin 0.64 L Hep C Ab Diagnostic 2D echo results reviewed CXR images and results reviewed, resolved congestion, improved from before. ASSESSMENT AND PLAN: 89 yof with PMHx of HTN, Afib on xarelto, 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 -Atrial fibrillation with RVR -Acute CHF exacerbation, HFpEF -Valvular disease, moderate MR/TR here, severe MR/TR on echo in -Lip swelling, ?Drug reaction to ninlaro, improved with benadryl -IgG [place] Myeloma -Leucopenia/thrombocytopenia, setting of Myeloma/Ninlaro -HTN Plan: Intermittent symptomatic tachycardia. discussed with Dr. Camara, increased metoprolol. Lasix changed to daily. CXR improved, transition to PO in 24-48 hours. Continue digoxin. Will increase dosing if ongoing tachycardia with soft BP. 2D echo results reviewed. Xarelto resumed If platelets <50K, will need to stop per hematology recs. Monitor for bleed. Ninlaro on hold, plan per oncology. Valtex for prophylaxis started. BP stable off diltiazem. Monitor for now Will need home oxygen needs assessment prior to dc [id number] on xarelto Dispo pending clinical improvement. Discussed with patient and daughter at bedside, all questions answered.
[2019-05-04] MEDS: DIGOXIN 0.125 MG TABLET (FP) PO SCH (11:29)
[2019-05-04] MEDS: valACYclovir HCL 500 MG TABLET (FP) PO SCH ×2 (11:30→22:00)
[2019-05-04] MEDS: metoPROLOL SUCCINATE 25 MG TAB.SR.24H (FP) PO SCH ×2 (11:30→22:01)
[2019-05-04] MEDS: FUROSEMIDE 40 MG/4 ML INJECTABLE VIAL IVPUSH SCH (11:30)
[2019-05-04] MEDS ORDERED: metoPROLOL SUCCINATE 25 MG TAB.SR.24H (FP) PO ONE (11:52)
--- NOTE | 2019-05-04 11:54 | PN ---
Progress Note (short form) - Note Progress Note: s: no cp, palps, dizziness, dyspnea Current Medications Digoxin (Lanoxin -) 0.125 mg PO Q48H [facility] Last Admin: 05/04/19 11:29 Dose: 0.125 mg Furosemide (Lasix Injection -) 40 mg IVPUSH DAILY [facility] Last Admin: 05/04/19 11:30 Dose: 40 mg Metoprolol Succinate (Toprol Xl -) 37.5 mg PO BID [facility] Metoprolol Succinate (Toprol Xl -) 12.5 mg PO ONCE ONE Stop: 05/04/19 11:53 Rivaroxaban (Xarelto) 20 mg PO DAILY@1800 [facility] Last Admin: 05/03/19 17:04 Dose: 20 mg Valacyclovir HCl (Valtrex -) 1,000 mg PO BID [facility] Last Admin: 05/04/19 11:30 Dose: 1,000 mg Vital Signs Period Temp Pulse Resp BP Sys/Duarte Pulse Ox Last 24 Hr 97.7 F-98 F 78-116 18-18 95-118/50-75 99 Constitutional: Yes: Well Nourished, No Distress, Calm Cardiovascular: Yes: Pulse Irregular, + JVD, S1, S2. No: Gallop, Murmur Respiratory: Yes: Regular, CTA Bilaterally. No: Accessory Muscle Use, Rales, Rhonchi, Wheezes Extremities: No: Cold Edema: No Neurological: Yes: Alert, Oriented Psychiatric: No: Agitated Assessment/Plan echo 02/2017 (here): low nl lvef, nl rv, mod ella, sev mr, sev tr, mild ar, mod pr, rvsp 40-50 echo 2018 (office): preserved LVEF. mod MR/TR echo 04/2019 nl LV/RV function, mild to mod dilated RA, mod MR, mod TR, PASP at least 49 mmHg, mild to mod AR cxr: congestive changes, small R effusion ecg 04/30: rapid AF, right QRS axis; no path q's or ST-T abn tele: AF mostly controlled HR, episodes of RVR 150s-160s a/p: 87 f hx multiple myeloma, htn, afib sob, acute CHF -initially hypoxic (87%). -BNP 2800 (signif up from prior), with CXR showing findings of mild chf (new vs 2017) -receiving lasix 40 iv bid, wt coming down. labs stable. Still has JVD however had low BPs, changed to lasix 40 mg IV daily 05/03 - nl LV function on echo with mod MR, mild to mod AR -no signs ACS AFib: -presented here 2017 with afib with rvr, likely due to poor med compliance, preserved LVEF on echo then -on diltiazem 180 and and metoprolol 50 qd at home -soft bp's here, HRs remain frequently rapid (briefly)--changed lopressor 12.5 q6H to toprol 25 bid. - added digoxin 0.125 mg QOD - additional dose 05/03 AM for rapid rate - inc toprol to 37.5 mg BID - uptitrate as tolerated, has has low BPs, improved today -cont xarelto 20 qd--if PLTs drop <50K will likely have to hold AC valvular dz: MR, TR -echo 2017 with severe MR/TR in setting of rapid AF, no clinical CHF then -will review recent office echo -no loud murmurs - mild to mod AR and mod MR on echo here, nl EF mult myeloma: -leukopenia, thrombocytopenia--no recent baseline values -per hospitalist, +/- heme
--- NOTE | 2019-05-04 15:11 | PN ---
Physical Exam: SUBJECTIVE: Patient seen and examined at bedside. No acute events. Pt still gets dizzy when walking. Feels well otherwise. OBJECTIVE: Vital Signs Period Temp Pulse Resp BP Sys/Duarte Pulse Ox Last 24 Hr 97.7 F-98 F 78-116 18-18 108-118/67-75 99 Gen: NAD, AAOx3 HEENT: NCAT, EOMI Neck: supple, no jvd Cardio irreg, normal s1s2, no mrg Pulm: cta b/l Abd: soft, nontender Ext: no edema Laboratory Results - last 24 hr 04/30/19 05/03/19 05/04/19 20:25 18:20 05:50 Direct Bilirubin 0.3 H Digoxin 0.64 L Hep C Ab Diagnostic <0.1 Active Medications Generic Name Dose Route Start Last Admin Trade Name Freq PRN Reason Stop Dose Admin Digoxin 0.125 mg 05/02/19 10:30 05/04/19 11:29 Lanoxin - PO 0.125 mg Q48H ANANT Administration Furosemide 40 mg 05/04/19 10:00 05/04/19 11:30 Lasix Injection - IVPUSH 40 mg DAILY ANANT Administration Metoprolol Succinate 37.5 mg 05/04/19 22:00 Toprol Xl - PO BID ANANT Rivaroxaban 20 mg 05/01/19 18:00 05/03/19 17:04 Xarelto PO 20 mg DAILY@1800 ANANT Administration Valacyclovir HCl 1,000 mg 05/02/19 22:00 05/04/19 11:30 Valtrex - PO 1,000 mg BID ANANT Administration ASSESSMENT/PLAN: 89 y/o F with PMH Afib with RVR ,CHF noted on exam/imaging with known valvular issues. Rate-related vs. organic CHF; following up repeat echo, continue diuresis, and monitor on tele. Would use BB for PRN rate control if any issues overnight given BP issues described with ER course. #Afib with RVR -asymptomatic at this time -xarelto -Toprol increased to 37.5 -Digoxin -Cardio on board -repeat echo without overt severe disease: mild mitral annular calcification, mild to moderate MR, moderate TR, mild Ao sclerosis, mild to moderate AR, mild to moderate pulm regurg, EF 60% #Fluid overload with elevated BNP -Clinically improving -IV Lasix -O2 to maintain sat > 88% -I&O -daily weights #Lip Swelling/Chemo rxn? -Noted by Heme/Onc -? drug reaction -monitor -Valtrex started empircally #IgG [place] Multiple myeloma -Heme/Onc on board -Pt takes Nehal (held for possible drug reaction as noted above) #Hx HTN -stable -off diltiazem Visit type - Emergency Visit Emergency Visit: No - New Patient This patient is new to me today: No - Critical Care Critical Care patient: No ATTENDING PHYSICIAN STATEMENT I saw and evaluated the patient. I reviewed the resident's note and discussed the case with the resident. I agree with the resident's findings and plan as documented. SUBJECTIVE: OBJECTIVE: ASSESSMENT AND PLAN:
[2019-05-04] MEDS: RIVAROXABAN 20 MG TABLET PO SCH (17:48)
[2019-05-04] MEDS ORDERED: PT OWN MED DRAWER 7, Y5N ONE (21:44)
[2019-05-05 07:19] LABS: ALBUMIN 3.2 g/dl (3.4-5.0); BILIRUBIN,TOTAL 0.7 mg/dL (0.2-1); BLOOD UREA NITROGEN 15.3 mg/dL (7-18); CALCIUM 8.7 mg/dL (8.5-10.1); CREATININE 0.8 mg/dL (0.55-1.3); POTASSIUM 3.7 mmol/L (3.5-5.1); TOT PROT 7.5 g/dl (6.4-8.2)
[2019-05-05 07:34] LABS: BASO % 0.4 % (0-2.0); EOS % 1.7 % (0-4.5); HEMATOCRIT 38.6 % (32.4-45.2); HEMOGLOBIN 12.8 GM/dL (10.7-15.3); LYMPH % 52.6 % (8-40); MCH 31.2 pg (25.7-33.7); MCHC 33.3 g/dl (32.0-36.0); MEAN CELL VOLUME 93.7 fl (80-96); MEAN PLT VOLUME 10.4 fl (7.5-11.1); MONO % 16.7 % (3.8-10.2); NEUT % 28.6 % (42.8-82.8); PLATELET COUNT 72 K/MM3 (134-434); RBC 4.12 M/mm3 (3.60-5.2); WHITE BLOOD COUNT 2.8 K/mm3 (4.0-10.0)
[2019-05-05] MEDS ORDERED: PT OWN MED DRAWER 7, Y5N ONE ×2 (08:54→21:07)
[2019-05-05] MEDS: FUROSEMIDE 40 MG/4 ML INJECTABLE VIAL IVPUSH SCH (09:04)
[2019-05-05] MEDS: valACYclovir HCL 500 MG TABLET (FP) PO SCH ×2 (09:04→21:41)
[2019-05-05] MEDS: metoPROLOL SUCCINATE 25 MG TAB.SR.24H (FP) PO SCH (09:04)
--- NOTE | 2019-05-05 10:37 | PN ---
Teaching Attending Note Name of Resident: Balbir Estrada ATTENDING PHYSICIAN STATEMENT I saw and evaluated the patient. I reviewed the resident's note and discussed the case with the resident. I agree with the resident's findings and plan as documented with exceptions below. SUBJECTIVE: Patient seen and examined. feels better. breathing improved. palpitations/ dizziness better. Walking from bathroom. OBJECTIVE: Vital Signs Period Temp Pulse Resp BP Sys/Duarte Pulse Ox Last 24 Hr 98 F-98.4 F 80-123 18-18 104-111/54-71 99 Intake & Output 05/02/19 05/03/19 05/04/19 05/05/19 23:59 23:59 23:59 23:59 Intake Total 694 690 840 60 Balance 694 690 840 60 Weight 127 lb 9.6 oz 124 lb 12.8 oz 125 lb 125 lb 3.2 oz General: walking from bathroom, looks well, no respiratory distress Neck: soft, supple Chest; decreased air entry all over, no rales or wheezing appreciated Abdomen;Soft, NT CVS:S1S2 irregularly irregular Extremities: no edema Home Medications Medication Instructions Recorded Metoprolol Succinate [Toprol XL -] 50 mg PO DAILY #30 cap 03/09/17 Rivaroxaban [Xarelto -] 20 mg PO DAILY #30 tablet 03/09/17 Acetaminophen [Tylenol 500 mg 04/30/19 .Extra-Strength -] Diltiazem Cd [Cardizem Cd -] 180 mg PO DAILY 04/30/19 Diphenhydramine HCl [Wal-Dryl] 10 mg 04/30/19 Ixazomib Citrate [Ninlaro] 2.3 mg PO 04/30/19 Active Medications Digoxin (Lanoxin -) 0.125 mg PO Q48H [facility] Last Admin: 05/04/19 11:29 Dose: 0.125 mg Furosemide (Lasix -) 40 mg PO DAILY [facility] Metoprolol Succinate (Toprol Xl -) 50 mg PO BID [facility] Metoprolol Succinate (Toprol Xl -) 12.5 mg PO ONCE ONE Stop: 05/06/19 10:33 Rivaroxaban (Xarelto) 20 mg PO DAILY@1800 [facility] Last Admin: 05/04/19 17:48 Dose: 20 mg Valacyclovir HCl (Valtrex -) 1,000 mg PO BID [facility] Last Admin: 05/05/19 09:04 Dose: 1,000 mg Laboratory Results - last 24 hr 05/05/19 05/05/19 05:08 06:08 WBC 2.8 L RBC 4.12 Hgb 12.8 Hct 38.6 MCV 93.7 MCH 31.2 MCHC 33.3 RDW 18.0 H Plt Count 72 L MPV 10.4 Absolute Neuts (auto) 0.8 L Neutrophils % 28.6 L D Lymphocytes % 52.6 H D Monocytes % 16.7 H Eosinophils % 1.7 Basophils % 0.4 Nucleated RBC % 0 Sodium 141 Potassium 3.7 Chloride 103 Carbon Dioxide 29 Anion Gap 8 BUN 15.3 Creatinine 0.8 Est GFR (CKD-EPI)AfAm 76.83 Est GFR (CKD-EPI)NonAf 66.29 Random Glucose 84 Calcium 8.7 Total Bilirubin 0.7 AST 49 H ALT 41 Alkaline Phosphatase 112 Total Protein 7.5 Albumin 3.2 L Microbiology 04/30/19 09:17 Blood - Peripheral Venous Blood Culture - Final NO GROWTH AFTER 5 DAYS INCUBATION 04/30/19 09:17 Blood - Peripheral Venous Blood Culture - Final NO GROWTH AFTER 5 DAYS INCUBATION 05/01/19 14:45 Throat Throat Culture - Final NO BETA HEMOLYTIC STREPTOCOCCI ISOLATED 04/30/19 10:50 Urine - Urine Clean Catch Urine Culture - Final Normal Urogenital Branid CXR 05/04 results and images reviewed ASSESSMENT AND PLAN: 89 yof with PMHx of HTN, Afib on xarelto, 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 -Atrial fibrillation with RVR -Acute CHF exacerbation, HFpEF -Valvular disease, moderate MR/TR here, severe MR/TR on echo in -Lip swelling, ?Drug reaction to ninlaro, improved with benadryl -IgG [place] Myeloma -Leucopenia/thrombocytopenia, setting of Myeloma/Ninlaro -HTN Plan: Overall HR improved. Volume status better, CXR improved, oxygenating well. Change lasix to 40 mg PO daily. Increase metoprolol to 50 mg BID. Continue digoxin q48h for now. Follow up cardiology input. 2D echo results reviewed. Xarelto resumed If platelets <50K, will need to stop per hematology recs. Monitor for bleed. Ninlaro on hold, plan per oncology. Valtex for prophylaxis started. BP stable off diltiazem. Monitor for now Ambulatory oxygen needs assessment. PT eval. DVTPPX on xarelto Dispo in 48 hours if HR and volume status continue to improve. Discussed with patient and daughter at bedside, all questions answered.
--- NOTE | 2019-05-05 11:45 | PN ---
Physical Exam: SUBJECTIVE: Patient seen and examined at bedside. Pt was tachycardic, but not as bad as before. Pt is comfortable. OBJECTIVE: Vital Signs Period Temp Pulse Resp BP Sys/Duarte Pulse Ox Last 24 Hr 98 F-98.4 F 80-123 18-18 104-111/54-71 99 Gen: NAD, AAOx3 HEENT: NCAT, EOMI Neck: supple, no jvd Cardio irreg, normal s1s2, no mrg Pulm: cta b/l Abd: soft, nontender Ext: no edema Laboratory Results - last 24 hr 05/05/19 05/05/19 05:08 06:08 WBC 2.8 L RBC 4.12 Hgb 12.8 Hct 38.6 MCV 93.7 MCH 31.2 MCHC 33.3 RDW 18.0 H Plt Count 72 L MPV 10.4 Absolute Neuts (auto) 0.8 L Neutrophils % 28.6 L D Lymphocytes % 52.6 H D Monocytes % 16.7 H Eosinophils % 1.7 Basophils % 0.4 Nucleated RBC % 0 Sodium 141 Potassium 3.7 Chloride 103 Carbon Dioxide 29 Anion Gap 8 BUN 15.3 Creatinine 0.8 Est GFR (CKD-EPI)AfAm 76.83 Est GFR (CKD-EPI)NonAf 66.29 Random Glucose 84 Calcium 8.7 Total Bilirubin 0.7 AST 49 H ALT 41 Alkaline Phosphatase 112 Total Protein 7.5 Albumin 3.2 L Active Medications Generic Name Dose Route Start Last Admin Trade Name Freq PRN Reason Stop Dose Admin Digoxin 0.125 mg 05/02/19 10:30 05/04/19 11:29 Lanoxin - PO 0.125 mg Q48H ANANT Administration Furosemide 40 mg 05/06/19 10:00 Lasix - PO DAILY [facility] Metoprolol Succinate 50 mg 05/05/19 22:00 Toprol Xl - PO BID ANANT Metoprolol Succinate 12.5 mg 05/06/19 10:45 Toprol Xl - PO 05/06/19 10:46 ONCE ONE Rivaroxaban 20 mg 05/01/19 18:00 05/04/19 17:48 Xarelto PO 20 mg DAILY@1800 ANANT Administration Valacyclovir HCl 1,000 mg 05/02/19 22:00 05/05/19 09:04 Valtrex - PO 1,000 mg BID ANANT Administration ASSESSMENT/PLAN: 89 y/o F with PMH Afib with RVR ,CHF noted on exam/imaging with known valvular issues. Rate-related vs. organic CHF; following up repeat echo, continue diuresis, and monitor on tele. Would use BB for PRN rate control if any issues overnight given BP issues described with ER course. #Afib with RVR -asymptomatic at this time -xarelto -Toprol increased to 50 -Digoxin -Cardio on board -repeat echo without overt severe disease: mild mitral annular calcification, mild to moderate MR, moderate TR, mild Ao sclerosis, mild to moderate AR, mild to moderate pulm regurg, EF 60% #Fluid overload with elevated BNP -Clinically improving -PO Lasix -O2 to maintain sat > 88% -I&O -daily weights #Lip Swelling/Chemo rxn? -Noted by Heme/Onc -? drug reaction -monitor -Valtrex started empircally #IgG [place] Multiple myeloma -Heme/Onc on board -Pt takes Ninlaro (held for possible drug reaction as noted above) #Hx HTN -stable -off diltiazem Visit type - Emergency Visit Emergency Visit: No - New Patient This patient is new to me today: No - Critical Care Critical Care patient: No ATTENDING PHYSICIAN STATEMENT I saw and evaluated the patient. I reviewed the resident's note and discussed the case with the resident. I agree with the resident's findings and plan as documented. SUBJECTIVE: OBJECTIVE: ASSESSMENT AND PLAN:
--- NOTE | 2019-05-05 11:59 | PN ---
Progress Note (short form) - Note Progress Note: s: no cp, palps, dizziness, dyspnea Current Medications Generic Name Dose Route Start Last Admin Trade Name Freq PRN Reason Stop Dose Admin Digoxin 0.125 mg 05/02/19 10:30 05/04/19 11:29 Lanoxin - PO 0.125 mg Q48H ANANT Administration Furosemide 40 mg 05/06/19 10:00 Lasix - PO DAILY ANANT Metoprolol Succinate 50 mg 05/05/19 22:00 Toprol Xl - PO BID ANANT Metoprolol Succinate 12.5 mg 05/06/19 10:45 Toprol Xl - PO 05/06/19 10:46 ONCE ONE Rivaroxaban 20 mg 05/01/19 18:00 05/04/19 17:48 Xarelto PO 20 mg DAILY@1800 ANANT Administration Valacyclovir HCl 1,000 mg 05/02/19 22:00 05/05/19 09:04 Valtrex - PO 1,000 mg BID ANANT Administration Vital Signs Period Temp Pulse Resp BP Sys/Duarte Pulse Ox Last 24 Hr 98 F-98.4 F 80-123 18-18 104-111/54-71 99 Constitutional: Yes: Well Nourished, No Distress, Calm Cardiovascular: Yes: Pulse Irregular, + JVD, S1, S2. No: Gallop, Murmur Respiratory: Yes: Regular, CTA Bilaterally. No: Accessory Muscle Use, Rales, Rhonchi, Wheezes Extremities: No: Cold Edema: No Neurological: Yes: Alert, Oriented Psychiatric: No: Agitated CBC, BMP 05/05/19 06:08 05/05/19 05:08 Assessment/Plan echo 02/2017 (here): low nl lvef, nl rv, mod ella, sev mr, sev tr, mild ar, mod pr, rvsp 40-50 echo 2018 (office): preserved LVEF. mod MR/TR echo 04/2019 nl LV/RV function, mild to mod dilated RA, mod MR, mod TR, PASP at least 49 mmHg, mild to mod AR cxr: congestive changes, small R effusion ecg 04/30: rapid AF, right QRS axis; no path q's or ST-T abn tele: AF controlled HR a/p: 89 f hx multiple myeloma, htn, afib sob, acute CHF -initially hypoxic (87%). -BNP 2800 (signif up from prior), with CXR showing findings of mild chf (new vs 2017) -receiving lasix 40 iv bid, wt coming down. labs stable. Still has JVD however had low BPs, changed to lasix 40 mg IV daily 05/03 - nl LV function on echo with mod MR, mild to mod AR -no signs ACS -cont iv lasix for now, monitor daily wts, chem7 AFib: -presented here 2017 with afib with rvr, likely due to poor med compliance, preserved LVEF on echo then -on diltiazem 180 and and metoprolol 50 qd at home -soft bp's here, HRs remain frequently rapid (briefly)--changed lopressor 12.5 q6H to toprol 25 bid. - cont digoxin 0.125 mg QOD - cont toprol to 37.5 mg BID - uptitrate as tolerated, has has low BPs -cont xarelto 20 qd--if PLTs drop <50K will likely have to hold AC valvular dz: MR, TR -echo 2017 with severe MR/TR in setting of rapid AF, no clinical CHF then - mild to mod AR and mod MR on echo here, nl EF mult myeloma: -leukopenia, thrombocytopenia--no recent baseline values -per hospitalist, +/- heme
[2019-05-05] MEDS: RIVAROXABAN 20 MG TABLET PO SCH (17:45)
[2019-05-06] MEDS ORDERED: FUROSEMIDE 40 MG TABLET (FP) PO SCH (10:00)
--- NOTE | 2019-05-06 10:02 | PN ---
Progress Note, Physician Chief Complaint: TELE: AF w/ average rate 70-80 Sitting chair, comfortable, Denies CP or SOB - Current Medication List Current Medications: Active Medications Digoxin (Lanoxin -) 0.125 mg PO Q48H [facility] Last Admin: 05/04/19 11:29 Dose: 0.125 mg Furosemide (Lasix -) 40 mg PO DAILY [facility] Metoprolol Succinate (Toprol Xl -) 50 mg PO BID [facility] Last Admin: 05/05/19 21:41 Dose: 50 mg Metoprolol Succinate (Toprol Xl -) 12.5 mg PO ONCE ONE Stop: 05/06/19 10:46 Rivaroxaban (Xarelto) 20 mg PO DAILY@1800 [facility] Last Admin: 05/05/19 17:45 Dose: 20 mg Valacyclovir HCl (Valtrex -) 1,000 mg PO BID [facility] Last Admin: 05/05/19 21:41 Dose: 1,000 mg - Objective Vital Signs: Vital Signs Temperature 98 F 05/06/19 06:00 Pulse Rate 78 05/06/19 06:00 Respiratory Rate 18 05/06/19 06:00 Blood Pressure 94/54 L 05/06/19 06:00 O2 Sat by Pulse Oximetry (%) 94 L 05/05/19 21:00 Constitutional: Yes: Calm Cardiovascular: Yes: Pulse Irregular Respiratory: Yes: Other (decreased basilar breath sounds) Gastrointestinal: Yes: Soft Edema: No Neurological: Yes: Alert, Oriented ...Motor Strength: WNL Labs: CBC, BMP 05/05/19 06:08 05/05/19 05:08 INR, PTT INR 1.32 (0.83-1.09) H 05/01/19 06:05 - ....Imaging Chest X-ray: Image Reviewed (05/04, improved/resolved congestion) EKG: Image Reviewed Assessment/Plan echo 04/2019 nl LV/RV function, mild to mod dilated RA, mod MR, mod TR, PASP at least 49 mmHg, mild to mod AR tele: AF controlled HR a/p: 89 f hx multiple myeloma, htn, afib sob, acute CHF -Improved w/ IV Lasix, now on PO -no signs ACS AFib: -Rate controlled -on diltiazem 180 and and metoprolol 50 qd at home -low BP (90-100 is her baseline). - cont digoxin 0.125 mg QOD - cont toprol 50 mg BID -cont xarelto 20 qd--if PLTs drop <50K will likely have to hold AC Valvular dz: MR, TR -echo 2016 with severe MR/TR in setting of rapid AF, no clinical CHF then - mild to mod AR and mod MR on echo here, nl EF Mult myeloma: -leukopenia, thrombocytopenia--no recent baseline values -per hospitalist, +/- heme Ok D/C TELE
[2019-05-06] MEDS ORDERED: metoPROLOL SUCCINATE 25 MG TAB.SR.24H (FP) PO ONE (10:45)
[2019-05-06] MEDS ORDERED: PT OWN MED DRAWER 7, Y5N ONE (11:06)
[2019-05-06] MEDS: DIGOXIN 0.125 MG TABLET (FP) PO SCH (11:15)
[2019-05-06] MEDS: valACYclovir HCL 500 MG TABLET (FP) PO SCH (11:15)
[2019-05-06 11:18] VITALS: PULSE 91
--- NOTE | 2019-05-06 12:56 | PN ---
Teaching Attending Note Name of Resident: Balbir Estrada ATTENDING PHYSICIAN STATEMENT I saw and evaluated the patient. I reviewed the resident's note and discussed the case with the resident. I agree with the resident's findings and plan as documented with exceptions below. SUBJECTIVE: Patient seen and examined. Feels better, no dyspnea or dizziness. Glad that will be able to go home. OBJECTIVE: Vital Signs Period Temp Pulse Resp BP Sys/Duarte Pulse Ox Last 24 Hr 97.9 F-99 F 51-91 18-18 85-105/45-70 94-95 Intake & Output 05/03/19 05/04/19 05/05/19 05/06/19 23:59 23:59 23:59 23:59 Intake Total 690 840 270 250 Balance 690 840 270 250 Weight 124 lb 12.8 oz 125 lb 125 lb 3.2 oz 124 lb 3.2 oz General: pleasant, sitting in bed in no acute distress necK: soft, supple, no JVD Chest: CTAB, no rales or wheezing Abdomen:soft, Nt ND Extremities: no edema Home Medications Medication Instructions Recorded Rivaroxaban [Xarelto -] 20 mg PO DAILY #30 tablet 03/09/17 Acetaminophen [Tylenol 500 mg PO Q8H PRN 04/30/19 .Extra-Strength -] Diphenhydramine HCl [Wal-Dryl] 10 mg PO PRN PRN 04/30/19 Digoxin [Lanoxin -] 0.125 mg PO Q48H #15 tablet 05/06/19 Furosemide [Lasix -] 40 mg PO DAILY #30 tablet 05/06/19 Metoprolol Succinate [Toprol XL -] 50 mg PO BID #60 tab.sr.24h 05/06/19 Valacyclovir HCl [Valtrex -] 1,000 mg PO BID #30 tablet 05/06/19 Telemetry: Afib/Flutter, HR controlled ASSESSMENT AND PLAN: 89 yof with PMHx of HTN, Afib on xarelto, 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 -Atrial fibrillation with RVR -Acute CHF exacerbation, HFpEF -Valvular disease, moderate MR/TR here, severe MR/TR on echo in -Lip swelling, ?Drug reaction to ninlaro, improved with benadryl -IgG [place] Myeloma -Leucopenia/thrombocytopenia, setting of Myeloma/Ninlaro -HTN Plan: HR improved, volume status better, Doing well off oxygen. cardiology input noted. Lasix 40 mg daily. toprol XL 50 mg BID, digoxin 0.125 mg every other day. CBC stable, Valtrex started, Sirishalaro on hold, outpatient follow up with Dr. Osman. d/c home with services today with outpatient Cardiology/oncology follow up. Discussed with patient and daughter.
[2019-05-06 13:06] VITALS: BP 98/57; TEMP 98.6
--- NOTE | 2019-05-07 12:21 | DS ---
Physical Exam: SUBJECTIVE: Patient seen and examined at bedside. OBJECTIVE: PHYSICAL EXAM Gen: NAD, AAOx3 HEENT: NCAT, EOMI Neck: supple, no jvd Cardio irreg, normal s1s2, no mrg Pulm: cta b/l Abd: soft, nontender Ext: no edema LABS HOSPITAL COURSE: Date of Admission:04/30/19 Date of Discharge: 05/07/19 89 y/o F with PMH Afib with RVR ,CHF noted on exam/imaging with known valvular issues. Rate-related vs. organic CHF; following up repeat echo, continue diuresis, and monitor on tele. The patient was in AF with RVR. Her rate proved difficult to control. Her drug cocktail was adjusted and ultimately, she responded to Digoxin 0.125 daily and Toprol 50mg bid. She was maintained on lasix 20. Cardio was on board during her stay and aided greatly with management of her AF. She had repeat echo without overt severe disease: mild mitral annular calcification, mild to moderate MR, moderate TR, mild Ao sclerosis, mild to moderate AR, mild to moderate pulm regurg, EF 60% Her BNP was elevated, but she did not express signs and symptoms of overt failure. She complained mostly of rate related light-headedness. She was maintained on lasix. The patient was on Ninlaro for her multiple myeloma. She was seen by Heme/Onc for lip swelling, which was potentially attributable to a chemo reaction. The drug, Ninlaro, was stopped, and she was treated empirically with Valtrex. She did not have shortness of breath, throat closing, stridor, etc... Minutes to complete discharge: 30 Discharge Summary Reason For Visit: CONGESTIVE HEART FAILURE Condition: Stable - Instructions Diet, Activity, Other Instructions: You were admitted with fast heart rate and fluid in your lungs. You were seen by cardiology and your medications have been changed. You were also seen by oncologist and started on medication Valtrex. your Ninlaro is currently on hold, and you will need discuss further with doctor Dawson. Also you will need close monitoring of your blood counts given being on a blood thinner. MEDICATIONS: Stop these: Diltiazem Start these medications: Lasix 40 mg daily Toprol XL 50 mg twice daily Digoxin 0.125 mg every other day Valtrex 1000 mg twice daily. Continue xarelto with close monitoring of blood counts with your doctor. INSTRUCTIONS: You Ninlaro is currently on hold. Please discuss with Dr. Osman about resumption Weigh yourself daily and notify doctor if weight gain > 3lbs in 2 days. You kidney function will need to be closely monitored. If your blood counts (platelets) drop below [id number], your xarelto may need to be held. FOLLOW UP: Blood work CBC, BMP in 3-[address] Osman. With Dr. Osman in [address] Ojeda in 1 week With your primary care doctor in 1 week If you notice dizziness, trouble breathing, any bleeding, dark or blood stools or any new concerns, please call 911 or come to the ED. Referrals: Mauro Ojeda MD [Staff Physician] - Domitila Fish MD [Primary Care Provider] - Balbir Osman MD [Staff Physician] - Disposition: [facility]/HOME HEALTH CARE - Home Medications Comprehensive Discharge Medication List: Ambulatory Orders Rivaroxaban [Xarelto -] 20 mg PO DAILY #30 tablet 03/09/17 Acetaminophen [Tylenol .Extra-Strength -] 500 mg PO Q8H PRN 04/30/19 Diphenhydramine HCl [Wal-Dryl] 10 mg PO PRN PRN 04/30/19 Digoxin [Lanoxin -] 0.125 mg PO Q48H #15 tablet 05/06/19 Furosemide [Lasix -] 40 mg PO DAILY #30 tablet 05/06/19 Metoprolol Succinate [Toprol XL -] 50 mg PO BID #60 tab.sr.24h 05/06/19 Valacyclovir HCl [Valtrex -] 1,000 mg PO BID #30 tablet 05/06/19 This patient is new to me today: No Emergency Visit: No Critical Care patient: No - Discharge Referral Referred to [facility] No ATTENDING PHYSICIAN STATEMENT I saw and evaluated the patient. I reviewed the resident's note and discussed the case with the resident. I agree with the resident's findings and plan as documented. SUBJECTIVE: OBJECTIVE: ASSESSMENT AND PLAN:
== END 2019-05-06 15:26 | disposition home health service (06) | DRG 201 ==
LOC: JER 09:09 → JERBED 13:03 → J4W 20:53
PROVIDERS: ADMIT Internal Medicine; ATTEND Hospitalist
DX: I48.91 Unspecified atrial fibrillation (principal); I10 Essential (primary) hypertension; D72.819 Decreased white blood cell count, unspecified; T45.1X5A Adverse effect of antineoplastic and immunosuppressive drugs, initial encounter; I95.9 Hypotension, unspecified; C90.00 Multiple myeloma not having achieved remission; D69.6 Thrombocytopenia, unspecified; I50.31 Acute diastolic (congestive) heart failure; I11.0 Hypertensive heart disease with heart failure; E87.70 Fluid overload, unspecified
CPT/HCPCS: 36415; 71045-TC-FY; 76705-TC; 80048; 80053; 80162; 81003; 82248; 82550; 82553; 83605; 83735; 83880; 84439; 84443; 84484; 85025; 85027; 85610; 86803; 87040; 87070; 87086; 87880; 93005; 93010; 93306-TC; 94761; 97116-GP; 97161-GP; 99285-25

== ENCOUNTER 2021-04-05 04:30 | Day surgery (SDC) | payer OTHER ==
[2021-04-04 15:59] VITALS: BMI 23.3
[2021-04-05] MEDS ORDERED: BUPIVACAINE HCL/PF 0.5% (5MG/ML) 10 ML VIAL ONE (11:07)
[2021-04-05] MEDS ORDERED: TRIAMCINOLONE ACET 40MG/1ML VIAL ONE (11:07)
[2021-04-05] MEDS ORDERED: LIDOCAINE HCL 1%, 10 MG/ML (20ML VIAL) INF ONE (11:17)
[2021-04-05] MEDS ORDERED: IOHEXOL 180 MG/1 ML ML IT ONE (11:17)
[2021-04-05] MEDS ORDERED: TRIAMCINOLONE ACETONIDE 40 MG/ML 10 ML VIAL IJ ONE (11:18)
[2021-04-05] MEDS ORDERED: BUPIVACAINE HCL/PF 0.5% (5 MG/ML) 30 ML VIAL IJ ONE (11:20)
[2021-04-05] MEDS ORDERED: ACETAMINOPHEN 325 MG TABLET (FP) ONE (12:00)
[2021-04-05 13:00] VITALS: BP 142/73; PULSE 73; TEMP 98.1
[2021-04-05] MEDS ORDERED: ACETAMINOPHEN 325 MG TABLET (FP) PO ONE (13:30)
== END 2021-04-05 12:15 | disposition home or self-care (01) ==
LOC: JASU-SURG 04:30
PROVIDERS: ATTEND Pain Medicine Pain Medicine
PROC: 3E0U3BZ Introduction of Anesthetic Agent into Joints, Percutaneous Approach (ICD-10-PCS; 2021-04-05)
PROC: 3E0U33Z Introduction of Anti-inflammatory into Joints, Percutaneous Approach (ICD-10-PCS; principal; 2021-04-05 10:15)
DX: M53.3 Sacrococcygeal disorders, not elsewhere classified (principal)